=== PATIENT | male | born 1945 | race Caucasian/White ===

== ENCOUNTER 2016-06-08 21:05 | Emergency (ER) | payer MEDICARE, MEDICAID ==
[2016-06-09] MEDS ORDERED: NORMAL SALINE 1000 ML 1,000 ML IV PRN (02:44)
--- NOTE | 2016-06-09 02:45 | ER Document Report ---
ED General - General Chief Complaint: Other Stated Complaint: NECK/SHOULDER PAIN Time seen by provider: 02:45 Mode of Arrival: Ambulatory Information source: Patient TRAVEL OUTSIDE OF THE [place] IN LAST 30 DAYS: No - HPI Patient complains to provider of: neck and shoulder pain Onset: Other - 2-3 days Onset/Duration: Gradual Quality of pain: Achy Severity: Mild Pain Level: 2 Associated symptoms: None Exacerbated by: Movement Relieved by: Denies Similar symptoms previously: Yes Recently seen / treated by doctor: Yes Notes: Patient is a 70-year-old male presenting to the emergency room complaining of neck and shoulder aches that have been going on for the past 2-3 days, stating that he feels dehydrated, he recently started a new medication provided by his math and physics instructor for constipation, which is Movantik, , he reports his last bowel movement was 3 or 4 days ago which is typical for him, he denies any chills, no fevers, no cough, cold or congestion, no vomiting, patient denies injury or trauma - Related Data Allergies/Adverse Reactions: No Known Allergies Allergy (Verified 06/08/16 22:48) Past Medical History - General Information source: Patient - Social History Smoking Status: Never Smoker Chew tobacco use (# tins/day): No Frequency of alcohol use: None Drug Abuse: None Family History: None - Past Medical History Cardiac Medical History: Reports: Hx Atrial Fibrillation, Hx Congestive Heart Failure, Hx Coronary Artery Disease, Hx Hypercholesterolemia, Hx Hypertension Denies: Hx Heart Attack Pulmonary Medical History: Reports: Hx Asthma, Hx Bronchitis, Hx COPD, Hx Pneumonia Denies: Hx Tuberculosis Neurological Medical History: Reports: Hx Cerebrovascular Accident - RIGHT SIDED WEAKNESS. Denies: Hx Seizures Endocrine Medical History: Reports: Hx Diabetes Mellitus Type 1, Hx Diabetes Mellitus Type 2 Renal/ Medical History: Denies: Hx Benign Prostatic Hyperplasia, Hx End Stage Renal Disease, Hx Kidney Stones, Hx Peritoneal Dialysis GI Medical History: Reports: Hx Gastroesophageal Reflux Disease. Denies: Hx Cirrhosis, Hx Ulcer Musculoskeltal Medical History: Denies Hx Arthritis, Denies Hx Multiple Sclerosis Psychiatric Medical History: Reports: Hx Depression Denies: Hx Bipolar Disorder, Hx Schizophrenia Past Surgical History: Reports: Hx Cardiac Catheterization - stent x1, Hx Cardiac Surgery - pacemaker x's2, Hx Cholecystectomy - 2000, Hx Orthopedic Surgery - jaw fx, Hx Pacemaker - x2 - Immunizations Hx Diphtheria, Pertussis, Tetanus Vaccination: Yes - < 5 years Hx Pneumococcal Vaccination: 12/24/11 Review of Systems - Review of Systems Constitutional: No symptoms reported EENT: No symptoms reported Cardiovascular: No symptoms reported Respiratory: No symptoms reported Gastrointestinal: No symptoms reported Genitourinary: No symptoms reported Male Genitourinary: No symptoms reported Musculoskeletal: See HPI Skin: No symptoms reported Hematologic/Lymphatic: No symptoms reported Neurological/Psychological: No symptoms reported -: Yes All other systems reviewed and negative Physical Exam - Vital signs Vitals: Temp Pulse Resp BP Pulse Ox 98.7 F 99 17 136/82 H 98 06/08/16 22:10 06/08/16 22:10 06/08/16 22:10 06/08/16 22:10 06/08/16 22:10 Interpretation: Normal - General General appearance: Appears well, Alert - HEENT Head: Normocephalic, Atraumatic Eyes: Other - Patient is wearing an eye patch on the right side Mucous membranes: Dry Pharynx: Normal Neck: Other - Bilateral paraspinal muscle tenderness radiating down into trapezius muscles, distal sensation and motor is intact with 2+ radial pulses - Respiratory Respiratory status: No respiratory distress Chest status: Nontender Breath sounds: Normal Chest palpation: Normal - Cardiovascular Rhythm: Regular Heart sounds: Normal auscultation Murmur: No - Abdominal Inspection: Normal Distension: No distension Bowel sounds: Hyperactive Tenderness: Nontender Organomegaly: No organomegaly - Back Back: Normal, Nontender - Extremities General upper extremity: Normal inspection, Nontender, Normal color, Normal ROM , Normal temperature General lower extremity: Normal inspection, Nontender, Normal color, Normal ROM , Normal temperature, Normal weight bearing. No: Liz's sign - Neurological Neuro grossly intact: Yes Cognition: Normal Orientation: AAOx4 Taya Coma Scale Eye Opening: Spontaneous Ballantine Coma Scale Verbal: Oriented Taya Coma Scale Motor: Obeys Commands Taya Coma Scale Total: 15 Speech: Normal Motor strength normal: LUE, RUE, LLE, RLE Sensory: Normal - Psychological Associated symptoms: Normal affect, Normal mood - Skin Skin Temperature: Warm Skin Moisture: Dry Skin Color: Normal Course - Re-evaluation Re-evalutation: 06/09/16 04:41 Patient resting comfortably, reports feeling much better after IV fluids, labs were discussed with him at bedside which are actually showing slightly improved kidney function since his last visit, patient was advised to follow-up with his primary care provider and his math and physics instructor for reevaluation or return if symptoms patient acknowledges understanding and agreement with this plan - Vital Signs Vital signs: Temp Pulse Resp BP Pulse Ox 98.7 F 99 17 136/82 H 98 06/08/16 22:10 06/08/16 22:10 06/08/16 22:10 06/08/16 22:10 06/08/16 22:10 - Laboratory Result Diagrams: 06/09/16 03:47 06/09/16 03:47 Laboratory results interpreted by me: 06/09/16 06/09/16 03:47 03:47 RDW 14.3 H Plt Count 145 L BUN 36 H Creatinine 2.38 H Est GFR ( Amer) 33 L Est GFR (Non-Af Amer) 27 L Discharge - Discharge Clinical Impression: Chronic pain syndrome Constipation Qualifiers: Constipation type: unspecified constipation type Qualified Code(s): K59.00 - Constipation, unspecified Condition: Stable Disposition: HOME, SELF-CARE Instructions: Observation for Appendicitis ([facility]), Chronic Pain Control ([facility]), Constipation ([facility]) Additional Instructions: Follow up with your primary care provider and math and physics instructor in one to 2 days. Return to the emergency room immediately if symptoms worsen or any additional concerns. Referrals: KAYLA INGRAM MD [Primary Care Provider] - Follow up as needed
[2016-06-09 04:04] LABS: ABSOLUTE BASOPHILS # (AUTO) 0.1 10^3/uL (0.0-0.2); ABSOLUTE EOSINOPHILS # (AUTO) 0.2 10^3/uL (0.0-0.6); ABSOLUTE LYMPHOCYTES (AUTO) 1.5 10^3/uL (0.5-4.7); ABSOLUTE MONOCYTES (AUTO) 0.9 10^3/uL (0.1-1.4); ABSOLUTE NEUT (AUTO) 5.4 10^3/uL (1.7-8.2); BASOPHILS % (AUTO) 0.8 % (0-2); EOSINOPHILS % (AUTO) 2.8 % (0-6); HEMOGLOBIN 13.5 g/dL (13.5-17.0); HGB HCT DIFFERENCE 0.5; LYMPHOCYTES % (AUTO) 18.6 % (13-45); MEAN CORPUSCULAR HEMOGLOBIN 28.4 pg (27.0-33.4); MEAN CORPUSCULAR HGB CONC 33.8 g/dL (32.0-36.0); MEAN CORPUSCULAR VOLUME 84 fl (80-97); MONOCYTES % (AUTO) 10.9 % (3-13); RED BLOOD COUNT 4.75 10^6/uL (4.35-5.55); RED CELL DISTRIBUTION WIDTH 14.3 % (11.5-14.0); SEGMENTED NEUTROPHILS % (AUTO) 66.9 % (42-78); WHITE BLOOD COUNT 8.1 10^3/uL (4.0-10.5)
[2016-06-09 04:17] LABS: ALANINE AMINOTRANSFERASE 29 U/L (21-72); ALBUMIN 3.8 g/dL (3.5-5.0); ALKALINE PHOSPHATASE 88 U/L (38-126); ANION GAP 9 (5-19); ASPARTATE AMINO TRANSFERASE 41 U/L (17-59); BILIRUBIN,TOTAL 0.5 mg/dL (0.2-1.3); BLOOD UREA NITROGEN 36 mg/dL (7-20); CALCIUM 9.2 mg/dL (8.4-10.2); CARBON DIOXIDE 27 mmol/L (22-30); CHLORIDE 105 mmol/L (98-107); CREATININE RESULT 2.38 mg/dL (0.52-1.25); GLUCOSE 110 mg/dL (75-110); POTASSIUM 4.4 mmol/L (3.6-5.0); SODIUM 140.8 mmol/L (137-145); TOTAL PROTEIN 6.9 g/dL (6.3-8.2)
[2016-06-09 05:58] VITALS: BP 151/83
== END 2016-06-09 05:58 | disposition home or self-care (01) ==
LOC: ER 21:05
DX: G89.4 Chronic pain syndrome (principal); M54.2 Cervicalgia; M25.519 Pain in unspecified shoulder; K59.00 Constipation, unspecified; I48.91 Unspecified atrial fibrillation; I25.10 Atherosclerotic heart disease of native coronary artery without angina pectoris; I10 Essential (primary) hypertension; J44.9 Chronic obstructive pulmonary disease, unspecified; E11.9 Type 2 diabetes mellitus without complications; Z98.61 Coronary angioplasty status; Z95.0 Presence of cardiac pacemaker; Z86.73 Personal history of transient ischemic attack (TIA), and cerebral infarction without residual deficits
CPT/HCPCS: 99283; 96360; 36415; 82553; 85025; 80053; J7030

== ENCOUNTER 2016-11-04 08:32 | Emergency (ER) | payer MEDICARE, MEDICAID ==
[2016-11-04] MEDS ORDERED: MORPHINE SULFATE 10 MG/ML INJ IM ONE (08:53)
--- NOTE | 2016-11-04 08:56 | ER Document Report ---
ED General - General Chief Complaint: Testicular Pain Stated Complaint: GROIN PAIN Time Seen by Provider: 11/04/16 08:44 Mode of Arrival: Ambulatory Information source: Patient Notes: 71-year-old male presents with sudden right testicular pain that started this morning when he awoke. Patient denies any fevers or chills admits nausea with the pain. Patient notes a history of stones in his kidney states the pain is in the testicle feels it is swollen TRAVEL OUTSIDE OF THE [place] IN LAST 30 DAYS: No - HPI Onset: Just prior to arrival Onset/Duration: Sudden Quality of pain: Sharp Severity: Moderate Pain Level: 3 Associated symptoms: Other Exacerbated by: Denies Relieved by: Denies Similar symptoms previously: No Recently seen / treated by doctor: No - Related Data Allergies/Adverse Reactions: No Known Allergies Allergy (Verified 11/04/16 08:59) Past Medical History - Social History Smoking Status: Current Every Day Smoker Cigarette use (# per day): Yes Chew tobacco use (# tins/day): No Smoking Education Provided: No Family History: None - Past Medical History Cardiac Medical History: Reports: Hx Atrial Fibrillation, Hx Congestive Heart Failure, Hx Coronary Artery Disease, Hx Hypercholesterolemia, Hx Hypertension Denies: Hx Heart Attack Pulmonary Medical History: Reports: Hx Asthma, Hx Bronchitis, Hx COPD, Hx Pneumonia Denies: Hx Tuberculosis Neurological Medical History: Reports: Hx Cerebrovascular Accident - RIGHT SIDED WEAKNESS. Denies: Hx Seizures Endocrine Medical History: Reports: Hx Diabetes Mellitus Type 1, Hx Diabetes Mellitus Type 2 Renal/ Medical History: Denies: Hx Benign Prostatic Hyperplasia, Hx End Stage Renal Disease, Hx Kidney Stones, Hx Peritoneal Dialysis GI Medical History: Reports: Hx Gastroesophageal Reflux Disease. Denies: Hx Cirrhosis, Hx Ulcer Musculoskeltal Medical History: Denies Hx Arthritis, Denies Hx Multiple Sclerosis Psychiatric Medical History: Reports: Hx Depression Denies: Hx Bipolar Disorder, Hx Schizophrenia Past Surgical History: Reports: Hx Cardiac Catheterization - stent x1, Hx Cardiac Surgery - pacemaker x's2, Hx Cholecystectomy - 1999, Hx Orthopedic Surgery - jaw fx, Hx Pacemaker - x2 - Immunizations Hx Diphtheria, Pertussis, Tetanus Vaccination: Yes - < 5 years Hx Pneumococcal Vaccination: 12/24/11 Review of Systems - Review of Systems Notes: REVIEW OF SYSTEMS: CONSTITUTIONAL : Denies fever, chills, or sweats. Denies recent illness. EENT: Denies eye, ear, throat, or mouth pain or symptoms. Denies nasal or sinus congestion or discharge. Denies throat, tongue, or mouth swelling or difficulty swallowing. CARDIOVASCULAR: Denies chest pain. Denies palpitations or racing or irregular heart beat. Denies ankle edema. RESPIRATORY: Denies cough, cold, or chest congestion. Denies shortness of breath, difficulty breathing, or wheezing. GASTROINTESTINAL: Admits to right testicular pain nausea GENITOURINARY: Denies difficulty urinating, painful urination, burning, frequency, blood in urine, or discharge. MUSCULOSKELETAL: Denies back or neck pain or stiffness. Denies joint pain or swelling. SKIN: Denies rash, lesions or sores. HEMATOLOGIC : Denies easy bruising or bleeding. LYMPHATIC: Denies swollen, enlarged glands. NEUROLOGICAL: Denies confusion or altered mental status. Denies passing out or loss of consciousness. Denies dizziness or lightheadedness. Denies headache. Denies weakness or paralysis or loss of use of either side. Denies problems with gait or speech. Denies sensory loss, numbness, or tingling. Denies seizures. PSYCHIATRIC: Denies anxiety or stress. Denies depression, suicidal ideation, or homicidal ideation. ALL OTHER SYSTEMS REVIEWED AND NEGATIVE. Dictation was performed using [employer] voice recognition software PHYSICAL EXAMINATION: GENERAL: Well-appearing, well-nourished and in no acute distress. HEAD: Atraumatic, normocephalic. EYES: Pupils equal round and reactive to light, extraocular movements intact, sclera anicteric, conjunctiva are normal. ENT: Nares patent, oropharynx clear without exudates. Moist mucous membranes. NECK: Normal range of motion, supple without lymphadenopathy LUNGS: Breath sounds clear to auscultation bilaterally and equal. No wheezes rales or rhonchi. HEART: Regular rate and rhythm without murmurs ABDOMEN: Soft, nontender, nondistended abdomen. No guarding, no rebound. No masses appreciated. Right scrotum is edematous and tender to palpation cremaster reflexes intact Musculoskeletal: Normal range of motion, no pitting or edema. No cyanosis. NEUROLOGICAL: Cranial nerves grossly intact. Normal speech, normal gait. Normal sensory, motor exams PSYCH: Normal mood, normal affect. SKIN: Warm, Dry, normal turgor, no rashes or lesions noted. Physical Exam - Vital signs Vitals: Temp Pulse Resp BP Pulse Ox 98.5 F 95 18 151/86 H 97 11/04/16 08:38 11/04/16 08:38 11/04/16 08:38 11/04/16 08:38 11/04/16 08:38 Course - Re-evaluation Re-evalutation: 11/04/16 08:55 Patient will be emergently sent for ultrasound, he denies being sexually active patient is tender in the right testicle 11/04/16 10:14 U/s os consistant with a right sided hydrocele, no sign of infection in the urine, pt denies sexual activity. I will treat jessica cunningham and givefollow up with urology. After performing a Medical Screening Examination, I estimate there is LOW risk for ACUTE APPENDICITIS, BOWEL OBSTRUCTION, ACUTE CHOLECYSTITIS, PERFORATED DIVERTICULITIS, INCARCERATED HERNIA, PANCREATITIS, Testicular Torsion or PERFORATED ULCER, thus I consider the discharge disposition reasonable. Also, there is no evidence or peritonitis, sepsis, or toxicity. I have reevaluated this patient multiple times and no significant life threatening changes are noted. The patient and I have discussed the diagnosis and risks, and we agree with discharging home with close follow-up with the understanding that symptoms and presentations can change. We also discussed returning to the Emergency Department immediately if new or worsening symptoms occur. We have discussed the symptoms which are most concerning (e.g., bloody stool, fever, changing or worsening pain, intractable vomiting - standard verbal up date) that necessitate immediate return. - Vital Signs Vital signs: Temp Pulse Resp BP Pulse Ox 98.5 F 95 18 151/86 H 97 11/04/16 08:38 11/04/16 08:38 11/04/16 08:38 11/04/16 08:38 11/04/16 08:38 - Laboratory Laboratory results interpreted by me: 11/04/16 11/04/16 08:47 09:41 POC Glucose 283 H Urine Protein 100 H Urine Glucose (UA) >=500 H - Diagnostic Test Radiology reviewed: Image reviewed, Reports reviewed - right sided hydrocele Discharge - Discharge Clinical Impression: Right hydrocele, Scrotal pain Condition: Stable Disposition: HOME, SELF-CARE Instructions: Hydrocele ([facility]) Prescriptions: RX: Ciprofloxacin HCl [Cipro 500 mg Tablet] 500 mg PO BID #20 tablet Oxycodone HCl/Acetaminophen [Percocet 5-325 mg Tablet] 1 - 2 tab PO Q4H PRN #15 tablet PRN Reason: Referrals: KAYLA INGRAM MD [Primary Care Provider] - Follow up tomorrow JULIANA SU MD [ACTIVE STAFF] - Follow up tomorrow Print Language: Macedonian
[2016-11-04 09:28] LABS: APPEARANCE,URINE CLEAR; BILIRUBIN,URINE NEGATIVE (NEGATIVE); GLUCOSE, URINE >=500 mg/dL (NEGATIVE); KETONES,URINE NEGATIVE (NEGATIVE); LEUKOCYTE ESTERASE,URINE NEGATIVE (NEGATIVE); NITRITE,URINE NEGATIVE (NEGATIVE); PROTEIN,URINE 100 mg/dL (NEGATIVE); URINE SPECIFIC GRAVITY 1.008; UROBILINOGEN,URINE NEGATIVE mg/dL (<2.0)
--- NOTE | 2016-11-04 09:55 | RADIOLOGY REPORT (SQ) ---
EXAM DESCRIPTION: U/S SCROTUM W/DOPPLER COMPLETED DATE/TIME: 11/04/2016 9:43 am REASON FOR STUDY: right testicular pain COMPARISON: None. TECHNIQUE: Static and realtime torres scale imaging of the scrotum and testes. Selected color Doppler and spectral images recorded to document blood flow. LIMITATIONS: None. FINDINGS: RIGHT: TESTICLE: Normal size. Normal echotexture. Normal blood flow. No mass. EPIDIDYMIS: Epididymal head cyst is identified measuring 1.4 x 1.3 x 0.6 cm in diameters HYDROCELE OR VARICOCELE: Large hydrocele is identified. HERNIA OR EXTRA-TESTICULAR MASS: No. OTHER: No other significant finding. LEFT: TESTICLE: Normal size. Normal echotexture. Normal blood flow. No mass. EPIDIDYMIS: Epididymal head cyst is identified measuring 1.0 x 0.8 x 0.7 cm HYDROCELE OR VARICOCELE: No. HERNIA OR EXTRA-TESTICULAR MASS: No. OTHER: No other significant finding. IMPRESSION: Large hydrocele on the right. NO EVIDENCE OF TESTICULAR MASS OR TORSION. Other findings as noted above TECHNICAL DOCUMENTATION: JOB ID: [id number]- All Rights Reserved
[2016-11-04 10:44] VITALS: BP 148/74
== END 2016-11-04 10:42 | disposition home or self-care (01) ==
LOC: ER 08:32
DX: N43.3 Hydrocele, unspecified (principal); N50.811 Right testicular pain; R11.0 Nausea; I25.10 Atherosclerotic heart disease of native coronary artery without angina pectoris; I10 Essential (primary) hypertension; I48.91 Unspecified atrial fibrillation; J44.9 Chronic obstructive pulmonary disease, unspecified; E11.9 Type 2 diabetes mellitus without complications; F17.210 Nicotine dependence, cigarettes, uncomplicated; Z87.442 Personal history of urinary calculi; Z95.0 Presence of cardiac pacemaker
CPT/HCPCS: 99284; 96372; 82962; 81001; 76870; 93976; J2270

== ENCOUNTER 2016-11-06 08:09 | Emergency (ER) | payer MEDICARE, MEDICAID ==
[2016-11-06] MEDS ORDERED: ONDANSETRON HCL INJ/PF 4 MG/2 ML SDV IV ONE (08:58)
[2016-11-06] MEDS ORDERED: NORMAL SALINE 1000 ML 500 ML IV ONE (08:58)
[2016-11-06] MEDS ORDERED: KETOROLAC TROMETHAMINE INJ/PF 30 MG/1 ML SDV IV ONE (08:58)
[2016-11-06 09:36] LABS: ALANINE AMINOTRANSFERASE 26 U/L (21-72); ALBUMIN 4.1 g/dL (3.5-5.0); ALKALINE PHOSPHATASE 107 U/L (38-126); ANION GAP 12 (5-19); ASPARTATE AMINO TRANSFERASE 28 U/L (17-59); BILIRUBIN,DIRECT 0.5 mg/dL (0.0-0.4); BLOOD UREA NITROGEN 40 mg/dL (7-20); CALCIUM 9.3 mg/dL (8.4-10.2); CARBON DIOXIDE 26 mmol/L (22-30); CHLORIDE 101 mmol/L (98-107); CREATININE RESULT 3.51 mg/dL (0.52-1.25); GLUCOSE 151 mg/dL (75-110); LIPASE 132.9 U/L (23-300); POTASSIUM 4.6 mmol/L (3.6-5.0); SODIUM 138.6 mmol/L (137-145); TOTAL PROTEIN 7.5 g/dL (6.3-8.2)
[2016-11-06 09:39] LABS: ABSOLUTE EOSINOPHILS # (AUTO) 0.1 10^3/uL (0.0-0.6); ABSOLUTE LYMPHOCYTES (AUTO) 1.6 10^3/uL (0.5-4.7); ABSOLUTE MONOCYTES (AUTO) 1.3 10^3/uL (0.1-1.4); ABSOLUTE NEUT (AUTO) 7.7 10^3/uL (1.7-8.2); BASOPHILS % (AUTO) 0.4 % (0-2); EOSINOPHILS % (AUTO) 0.8 % (0-6); HEMATOCRIT 41.2 % (37.9-51.0); HEMOGLOBIN 13.9 g/dL (13.5-17.0); HGB HCT DIFFERENCE 0.5; LYMPHOCYTES % (AUTO) 15.1 % (13-45); MEAN CORPUSCULAR HEMOGLOBIN 28.9 pg (27.0-33.4); MEAN CORPUSCULAR HGB CONC 33.7 g/dL (32.0-36.0); MEAN CORPUSCULAR VOLUME 86 fl (80-97); MONOCYTES % (AUTO) 11.8 % (3-13); RED BLOOD COUNT 4.81 10^6/uL (4.35-5.55); RED CELL DISTRIBUTION WIDTH 14.9 % (11.5-14.0); SEGMENTED NEUTROPHILS % (AUTO) 71.9 % (42-78); WHITE BLOOD COUNT 10.7 10^3/uL (4.0-10.5)
--- NOTE | 2016-11-06 10:02 | RADIOLOGY REPORT (SQ) ---
EXAM DESCRIPTION: CT LTD RENAL STONE PROTOCOL ON COMPLETED DATE/TIME: 11/06/2016 9:44 am REASON FOR STUDY: right flank pain, right testicular pain with COMPARISON: CT abdomen pelvis 03/18/2014 TECHNIQUE: CT scan of the abdomen and pelvis performed without intravenous or oral contrast. Images reviewed with lung, soft tissue, and bone windows. Reconstructed coronal and sagittal MPR images revi ewed. All images stored on PACS. All CT scanners at this facility use dose modulation, iterative reconstruction, and/or weight based d osing when appropriate to reduce radiation dose to as low as reasonably achievable (ALARA). [facility]: Dose Right [facility]: CareDose [facility]: Dose Right [facility]: Teradose 4D [facility]: [employer] RADIATION DOSE: Up-to-date CT equipment and radiation dose reduction techniques were employed. CTDIv ol: 15.8 mGy. DLP: 1115 mGy-cm.mGy. LIMITATIONS: None. FINDINGS: A 2 mm stone is present in the right distal ureter, within 2 cm of the ureterovesical junc tion, best shown on axial image 94 and coronal image 55. There is very mild right hydronephrosis hyd roureter and perinephric stranding. Elsewhere in the right kidney, a 1 cm upper pole cortical cyst is present. No other right-sided urin tiffanie calculi. LOWER CHEST: Lung bases are clear. Coronary artery calcifications. Pacemaker. NON-CONTRASTED LIVER, SPLEEN, ADRENALS: Evaluation limited by lack of IV contrast. No identified sign ificant masses. PANCREAS: No masses. No peripancreatic inflammatory changes. GALLBLADDER: Surgically absent RIGHT KIDNEY AND URETER: As above LEFT KIDNEY AND URETER: No suspicious masses. Assessment limited by lack of IV contrast. No signifi cant calcifications. No hydronephrosis or hydroureter. AORTA AND RETROPERITONEUM: No abdominal aortic aneurysm. Very heavily calcified proximal celiac jamee ry and proximal right renal artery BOWEL AND PERITONEAL CAVITY: No obvious masses or inflammatory changes. No free fluid. APPENDIX: Normal. PELVIS, BLADDER, AND ABDOMINAL WALL:Minimal chronic scarring or fat necrosis along the inferior aspec t of the sigmoid colon, coronal image 41. This is similar compared to 2014. No free fluid. Bladder n ormal. BONES: No significant findings. OTHER: Moderate to large right scrotal hydrocele IMPRESSION: 2 mm right distal ureteral calculus with mild right hydronephrosis and hydroureter TECHNICAL DOCUMENTATION: JOB ID: [id number] Quality ID # [id number]: Final reports with documentation of one or more dose reduction techniques (e.g., Au tomated exposure control, adjustment of the mA and/or kV according to patient size, use of iterative reconstruction technique) 2010 [employer]- All Rights Reserved
--- NOTE | 2016-11-06 10:13 | ER Document Report ---
ED GI/ - General Chief Complaint: Flank Pain Stated Complaint: RIGHT SIDE PAIN Time Seen by Provider: 11/06/16 08:38 Mode of Arrival: Ambulatory Information source: Patient Notes: 71-year-old male who presents to the ER today for right flank pain radiating down to the right testicle since 3 days ago. Patient was evaluated here 2 days ago and had an ultrasound of the right testicle which revealed a hydrocele, but did not have any workup for flank pain. Patient states the flank pain did get worse since that time. He admits to nausea with no vomiting, he states that he does know he has multiple kidney stones in the right kidney. He denies fevers, chills, dysuria, hematuria that he is noticed. TRAVEL OUTSIDE OF THE [place] IN LAST 30 DAYS: No - Related Data Allergies/Adverse Reactions: No Known Allergies Allergy (Verified 11/06/16 08:15) Past Medical History - General Information source: Patient - Social History Smoking Status: Never Smoker Chew tobacco use (# tins/day): No Frequency of alcohol use: None Drug Abuse: None Family History: None Patient has suicidal ideation: No Patient has homicidal ideation: No - Past Medical History Cardiac Medical History: Reports: Hx Atrial Fibrillation, Hx Congestive Heart Failure, Hx Coronary Artery Disease, Hx Hypercholesterolemia, Hx Hypertension Denies: Hx Heart Attack Pulmonary Medical History: Reports: Hx Asthma, Hx Bronchitis, Hx COPD, Hx Pneumonia Denies: Hx Tuberculosis Neurological Medical History: Reports: Hx Cerebrovascular Accident - RIGHT SIDED WEAKNESS. Denies: Hx Seizures Endocrine Medical History: Reports: Hx Diabetes Mellitus Type 1, Hx Diabetes Mellitus Type 2 Renal/ Medical History: Denies: Hx Benign Prostatic Hyperplasia, Hx End Stage Renal Disease, Hx Kidney Stones, Hx Peritoneal Dialysis GI Medical History: Reports: Hx Gastroesophageal Reflux Disease. Denies: Hx Cirrhosis, Hx Ulcer Musculoskeltal Medical History: Denies Hx Arthritis, Denies Hx Multiple Sclerosis Psychiatric Medical History: Reports: Hx Depression Denies: Hx Bipolar Disorder, Hx Schizophrenia Past Surgical History: Reports: Hx Cardiac Catheterization - stent x1, Hx Cardiac Surgery - pacemaker x's2, Hx Cholecystectomy - 1999, Hx Orthopedic Surgery - jaw fx, Hx Pacemaker - x2 - Immunizations Hx Diphtheria, Pertussis, Tetanus Vaccination: Yes - < 5 years Hx Pneumococcal Vaccination: 12/24/11 Review of Systems - Review of Systems Constitutional: No symptoms reported EENT: No symptoms reported Cardiovascular: No symptoms reported Respiratory: No symptoms reported Gastrointestinal: No symptoms reported Genitourinary: See HPI Male Genitourinary: No symptoms reported Musculoskeletal: No symptoms reported Skin: No symptoms reported Hematologic/Lymphatic: No symptoms reported Neurological/Psychological: No symptoms reported Physical Exam - Vital signs Vitals: Temp Pulse Resp BP Pulse Ox 98.9 F 102 H 20 110/71 96 11/06/16 08:15 11/06/16 08:15 11/06/16 08:15 11/06/16 08:15 11/06/16 08:15 - Notes Notes: PHYSICAL EXAMINATION: GENERAL: Appears uncomfortable, but in no acute distress. HEAD: Atraumatic, normocephalic. NECK: Normal range of motion, supple without lymphadenopathy LUNGS: CTAB and equal. No wheezes rales or rhonchi. HEART: Regular rate and rhythm without murmurs ABDOMEN: Soft, no tenderness. No guarding, no rebound BACK: no vertebral tenderness, normal ROM GI/: Right CVA tenderness EXTREMITIES: Normal range of motion, no pitting edema. No cyanosis. NEUROLOGICAL: Cranial nerves grossly intact. Normal sensory/motor exams. PSYCH: Normal mood, normal affect. SKIN: Warm, Dry, normal turgor, no rashes or lesions noted Course - Re-evaluation Re-evalutation: 11/06/16 12:49 CAT scan reveals 2 mm stone in the right distal ureter, urinalysis reveals blood and no signs of infection. Patient is comfortable with Toradol, however has chronic kidney disease, at baseline. - Vital Signs Vital signs: Temp Pulse Resp BP Pulse Ox 98.9 F 83 17 131/78 H 96 11/06/16 08:15 11/06/16 13:15 11/06/16 13:15 11/06/16 13:15 11/06/16 08:15 - Laboratory Result Diagrams: 11/06/16 08:40 11/06/16 08:40 Laboratory results interpreted by me: 11/06/16 11/06/16 11/06/16 08:40 08:40 12:00 WBC 10.7 H RDW 14.9 H BUN 40 H Creatinine 3.51 H Est GFR ( Amer) 21 L Est GFR (Non-Af Amer) 17 L Glucose 151 H Direct Bilirubin 0.5 H Urine Protein 100 H Urine Glucose (UA) 150 H Urine Blood SMALL H Discharge - Discharge Clinical Impression: Kidney stone on right side Condition: Stable Disposition: HOME, SELF-CARE Additional Instructions: Return immediately for any new or worsening symptoms. Follow up with primary care provider, call tomorrow to make followup appointment. Follow up with urologist if symptoms do not resolve in 7 days. [facility] [place] [facility] [address] [place], [place] [phone] [place] [facility] [address] [facility]. [place], [place] [phone] Prescriptions: Ondansetron [Zofran Odt 4 mg Tablet] 1 - 2 tab PO Q4H PRN #15 tab.rapdis PRN Reason: For Nausea/Vomiting Oxycodone HCl [Oxycodone HCl 10 MG Tablet] 1 - 2 tab PO Q6H PRN #15 tablet PRN Reason: PAIN Tamsulosin HCl [Flomax] 0.4 mg PO DAILY #7 cap.er.24h Referrals: KAYLA INGRAM MD [Primary Care Provider] - Follow up as needed
[2016-11-06 12:37] LABS: APPEARANCE,URINE CLEAR; BILIRUBIN,URINE NEGATIVE (NEGATIVE); GLUCOSE, URINE 150 mg/dL (NEGATIVE); KETONES,URINE NEGATIVE (NEGATIVE); LEUKOCYTE ESTERASE,URINE NEGATIVE (NEGATIVE); NITRITE,URINE NEGATIVE (NEGATIVE); PROTEIN,URINE 100 mg/dL (NEGATIVE); URINE SPECIFIC GRAVITY 1.019; UROBILINOGEN,URINE NEGATIVE mg/dL (<2.0)
[2016-11-06 12:43] LABS: HYALINE CASTS, URINE 20-30 /LPF; RBC,URINE RARE /HPF; WBC,URINE RARE /HPF
[2016-11-06 13:16] VITALS: BP 131/78
== END 2016-11-06 13:15 | disposition home or self-care (01) ==
LOC: ER 08:09
DX: N20.0 Calculus of kidney (principal); R10.9 Unspecified abdominal pain; R11.0 Nausea; N50.811 Right testicular pain; I48.91 Unspecified atrial fibrillation; I11.0 Hypertensive heart disease with heart failure; I50.9 Heart failure, unspecified; I69.951 Hemiplegia and hemiparesis following unspecified cerebrovascular disease affecting right dominant side; I25.10 Atherosclerotic heart disease of native coronary artery without angina pectoris; Z95.0 Presence of cardiac pacemaker; Z90.49 Acquired absence of other specified parts of digestive tract
CPT/HCPCS: 99284; 96374; 96375; 36415; 83690; 85025; 80053; 81001; 76380; J1885; J2405; J7030

== ENCOUNTER 2017-01-10 09:04 | Day surgery (SDC) | payer MEDICARE, MEDICAID ==
[~2017-01-10 09:04] MED LIST: KETOROLAC TROMETHAMINE 0.45% 4 DROP/0.4 ML DROPERETTE OS PRN
[2017-01-10] MEDS ORDERED: EPINEPHRINE INJ/PF 1 MG/1 ML AMPULE ONE (09:13)
[2017-01-10] MEDS ORDERED: CHONDR SU A NA/HYALUR INTRAOC KIT (SURGICARE) ONE (09:13)
[2017-01-10] MEDS ORDERED: LIDOCAINE 1% INJ-PF (10 MG/ML) 30 ML SDV ONE (09:13)
[2017-01-10] MEDS: BESIFLOXACIN HCL 0.6% OPH SUSP 5 ML BOTTLE OS PRN ×3 (09:26→10:33)
[2017-01-10] MEDS: CYCLOPENTOLATE 0.2%/PHENYLEPHRINE 1% OPH SOLN 2 ML OS PRN ×3 (09:26→09:46)
[2017-01-10] MEDS: TROPICAMIDE 1% OPH SOLN 3 ML OS PRN ×3 (09:26→09:46)
[2017-01-10] MEDS: TETRACAINE HCL 0.5% OPH SOLN 2 ML OS PRN ×3 (09:27→10:07)
[2017-01-10] MEDS ORDERED: MIDAZOLAM 2 MG/2 ML INJ ONE (09:59)
--- NOTE | 2017-01-13 19:27 | [facility] OPERATIVE REPORT E ---
[facility] Operative Report NAME: JUJU DEVI AGE: 71Y DATE OF SURGERY: 01/11/2017 ROOM: PREOPERATIVE DIAGNOSIS: CATARACT, LEFT EYE. POSTOPERATIVE DIAGNOSIS: CATARACT, LEFT EYE. OPERATION: Cataract extraction with intraocular lens implant of the left eye. SURGEON: REKHA CAMARENA M.D. ANESTHESIA: Topical. PROCEDURE: After obtaining appropriate consent, the patient's left eye was prepped and draped in sterile fashion as well as the surgeon in a sterile manner and cataract surgery was started. First a paracentesis blade was used to make a small side-port incision. Viscoelastic was used to inflate the anterior chamber. Next a 2.4 mm incision was made with the paracentesis blade. A continuous capsulorrhexis incision was made using a cystotome and Utrata forceps. Following this hydrodissection was carried out to make the lens fully loose and mobile and it was rotated 90 degrees. Following this, a kesvjf-rqn-[id number] technique was used to phacoemulsify the lens with a CDE of 8.71. The remaining cortex was removed with irrigation/aspiration. Provisc was instilled into the capsular bag to inflate the bag. A SN60WF, 22.5 diopter lens was placed. The remaining viscoelastic material was removed with irrigation/aspiration. Following this, a 10-0 nylon suture was used to close the incision and it was found to be watertight. Vigamox was instilled in the eye and a protective shield was placed over the eye. The patient returned to the postoperative recovery in stable condition. DICTATING PHYSICIAN: REKHA CAMARENA M.D. [id number] PHY#: [id number] ID: [id number] JOB#: [id number] ACCT: [id number] cc:REKHA CAMARENA M.D. >
--- NOTE | 2017-01-13 19:27 | DISCHARGE SUMMARY E ---
Discharge Summary NAME: JUJU DEVI : 1945 AGE: 71Y ADMITTED: 01/10/2017 DISCHARGED: 01/10/2017 HISTORY: This is a 71-year-old patient who underwent cataract extraction left eye. DIAGNOSIS: Cataract, left eye. HOSPITAL COURSE AND DISCHARGE INSTRUCTIONS: He underwent surgery because he was having difficulty seeing the newspaper and television. He should be on a regular diet. No bending at his waist. No heavy lifting. He should use the Besivance, Ilevro, and Durezol at 3:00 p.m. at 8:00 p.m. and sleep with a rigid shield, and I will see him for his one day postoperative tomorrow. DICTATING PHYSICIAN: REKHA CAMARENA M.D. [id number] PHY#: [id number] ID: [id number] JOB#: [id number] ACCT: [id number] cc:REKHA CAMARENA M.D. >
== END 2017-01-10 11:17 | disposition home or self-care (01) ==
LOC: SC 09:04
PROVIDERS: ATTEND Internal Medicine
PROC: 08RK3JZ Replacement of Left Lens with Synthetic Substitute, Percutaneous Approach (ICD-10-PCS; principal; 2017-01-10 10:30)
DX: H25.812 Combined forms of age-related cataract, left eye (principal); H44.89 Other disorders of globe; H40.032 Anatomical narrow angle, left eye; H52.4 Presbyopia; E11.9 Type 2 diabetes mellitus without complications; M19.90 Unspecified osteoarthritis, unspecified site; I10 Essential (primary) hypertension; J45.909 Unspecified asthma, uncomplicated; I49.9 Cardiac arrhythmia, unspecified; Z86.73 Personal history of transient ischemic attack (TIA), and cerebral infarction without residual deficits; Z98.61 Coronary angioplasty status; Z79.4 Long term (current) use of insulin; Z79.01 Long term (current) use of anticoagulants; Z95.0 Presence of cardiac pacemaker; Z79.84 Long term (current) use of oral hypoglycemic drugs; Z79.51 Long term (current) use of inhaled steroids
CPT/HCPCS: 66984; 82962; V2632; J2250; J3490 ×2; A9270; J0171; 142

== ENCOUNTER 2017-02-09 18:30 | Emergency (ER) | payer MEDICARE, MEDICAID ==
--- NOTE | 2017-02-09 19:55 | ER Document Report ---
ED General - General Mode of Arrival: Ambulatory Information source: Patient TRAVEL OUTSIDE OF THE U.S[place] IN LAST 30 DAYS: No <DEANNA HORNE - Last Filed: 02/09/17 20:31> <JIMMY ANNE - Last Filed: 02/09/17 22:57> - General Chief Complaint: Groin Pain Stated Complaint: HIP PAIN Time Seen by Provider: 02/09/17 19:38 Notes: Patient is a 71 year old male presents to the emergency department complaining of left hip pain onset 3 to 4 days ago. Patient states that the pain Patient states that he can not stand due to the pain which he describes as sharp. Patient is currently on Coumadin. (DEANNA HORNE) - Related Data Allergies/Adverse Reactions: No Known Allergies Allergy (Verified 01/10/17 09:30) Past Medical History - General Information source: Patient - Social History Smoking Status: Never Smoker Chew tobacco use (# tins/day): No Frequency of alcohol use: None Drug Abuse: None Family History: None Patient has suicidal ideation: No Patient has homicidal ideation: No - Past Medical History Cardiac Medical History: Reports: Hx Atrial Fibrillation, Hx Congestive Heart Failure, Hx Coronary Artery Disease, Hx Hypercholesterolemia, Hx Hypertension Pulmonary Medical History: Reports: Hx Asthma, Hx Bronchitis, Hx COPD, Hx Pneumonia Neurological Medical History: Reports: Hx Cerebrovascular Accident - RIGHT SIDED WEAKNESS Endocrine Medical History: Reports: Hx Diabetes Mellitus Type 1, Hx Diabetes Mellitus Type 2 GI Medical History: Reports: Hx Gastroesophageal Reflux Disease Psychiatric Medical History: Reports: Hx Depression Past Surgical History: Reports: Hx Cardiac Catheterization - stent x1, Hx Cardiac Surgery - pacemaker x's2, Hx Cholecystectomy - 1999, Hx Orthopedic Surgery - jaw fx, Hx Pacemaker - x2 - Immunizations Hx Diphtheria, Pertussis, Tetanus Vaccination: Yes - < 5 years Hx Pneumococcal Vaccination: 12/24/11 <DEANNA HORNE - Last Filed: 02/09/17 20:31> Review of Systems - Review of Systems Constitutional: No symptoms reported EENT: No symptoms reported Cardiovascular: No symptoms reported Respiratory: No symptoms reported Gastrointestinal: No symptoms reported Genitourinary: No symptoms reported Male Genitourinary: No symptoms reported Musculoskeletal: See HPI - left hip and groin pain Skin: No symptoms reported Hematologic/Lymphatic: No symptoms reported Neurological/Psychological: No symptoms reported -: Yes All other systems reviewed and negative <DEANNA HORNE - Last Filed: 02/09/17 20:31> Physical Exam - General General appearance: Appears well, Alert In distress: None - HEENT Head: Normocephalic, Atraumatic Conjunctiva: Normal Pupils: PERRL Mucous membranes: Moist - Respiratory Respiratory status: No respiratory distress Breath sounds: Normal - Cardiovascular Rhythm: Regular Heart sounds: Normal auscultation - Abdominal Inspection: Normal Distension: No distension Bowel sounds: Normal Tenderness: Nontender Organomegaly: No organomegaly - Genitourinary Tenderness: No: Testicle tender - not enlagrged Cremasteric reflex: Normal - elicited Scrotum: Swelling, Other - non tender, - Back Back: Normal - Extremities General upper extremity: Normal inspection - no pain with ROM when testing of the left hip. No pain in adductor muscle insertion into groin., Normal ROM General lower extremity: Normal inspection, Normal ROM Hip: No: Nontender, Pain with ROM - Neurological Neuro grossly intact: Yes Cognition: Normal Orientation: AAOx4 [place] Coma Scale Eye Opening: Spontaneous [place] Coma Scale Verbal: Oriented [place] Coma Scale Motor: Obeys Commands [place] Coma Scale Total: 15 Speech: Normal - Psychological Associated symptoms: Normal affect, Normal mood - Skin Skin Temperature: Warm Skin Moisture: Dry <DEANNA HORNE - Last Filed: 02/09/17 20:31> - Vital signs Vitals: Resp 19 02/09/17 18:44 Course - Laboratory Result Diagrams: 02/09/17 18:40 02/09/17 18:40 <DEANNA HORNE - Last Filed: 02/09/17 20:31> - Laboratory Result Diagrams: 02/09/17 18:40 02/09/17 18:40 <JIMMY ANNE - Last Filed: 02/09/17 22:57> - Re-evaluation Re-evalutation: 02/09/17 22:51 The patient's evaluation is most consistent with shingles in the left L1 distribution. Review of the [place] controlled substance reporting system shows the patient received oxycodone 10 mg 60 tablets per month. He will receive a prescription for Percocet, as this problem can be quite painful and require more medication than what he is currently prescribed. He will be advised to follow with his doctor this week if he needs to be on larger doses of pain medication for any length of time. (JIMMY ANNE) - Vital Signs Vital signs: Temp Pulse Resp BP Pulse Ox 19 142/80 H 98 02/09/17 22:01 02/09/17 22:01 02/09/17 20:00 - Laboratory Laboratory results interpreted by me: 02/09/17 02/09/17 02/09/17 18:40 18:40 18:40 RDW 15.0 H Plt Count 149 L PT 26.5 H Chloride 93 L Carbon Dioxide 33 H BUN 32 H Creatinine 2.63 H Est GFR ( Amer) 29 L Est GFR (Non-Af Amer) 24 L Glucose 398 H Hemoglobin A1c % Alkaline Phosphatase 134 H Urine Protein Urine Glucose (UA) 02/09/17 02/09/17 18:40 20:31 RDW Plt Count PT Chloride Carbon Dioxide BUN Creatinine Est GFR ( Amer) Est GFR (Non-Af Amer) Glucose Hemoglobin A1c % 11.0 H Alkaline Phosphatase Urine Protein 100 H Urine Glucose (UA) >=500 H Discharge <DEANNA HORNE - Last Filed: 02/09/17 20:31> <JIMMY ANNE - Last Filed: 02/09/17 22:57> - Discharge Clinical Impression: Shingles rash Qualifiers: Herpes zoster complications: without complications Qualified Code(s): B02.9 - Zoster without complications Condition: Stable Disposition: HOME, SELF-CARE Additional Instructions: Shingles: You have shingles. Shingles is caused by the chicken pox virus, The virus has been surviving dormant in a nerve cell since you had chicken pox years ago. The virus has spread down a nerve root to reach the skin. Typically, an band-like area of pain and skin sensitivity develops, then small blisters erupt in the area. Shingles lasts two or three weeks, but sometimes leaves persistent pain. You are contagious -- you can give children chicken pox. But you can't give anyone shingles. Antiviral medicines (such as acyclovir or famciclovir) can help, but the rash usually worsens for about a week. Pain medication is often given if the area hurts. Antihistamines such as Benadryl may be necessary for itching if it does not respond to soda baths and calamine lotion. Sometimes cortisone medicine or nerve-block shots are necessary if pain is severe. If the area remains severely painful as the sores heal, or if you suspect an infection developing in the sores, see your doctor. Follow-up with your medical doctor if not improving. Follow-up with your medical doctor or your pain management doctor if you require additional narcotics for pain control above and beyond what you currently take on a regular basis. RETURN TO THE EMERGENCY ROOM IF ANY NEW OR WORSENING SYMPTOMS. Prescriptions: Acyclovir [Zovirax 800 mg Tablet] 800 mg PO 5XD #35 tab Oxycodone HCl/Acetaminophen [Percocet 5-325 mg Tablet] 1 tab PO Q4 #15 tablet Referrals: KAYLA INGRAM MD [Primary Care Provider] - Follow up as needed Scribe Attestation: 02/09/17 20:39 I personally performed the services described in the documentation, reviewed and edited the documentation which was dictated to the scribe in my presence, and it accurately records my words and actions. (JIMMY ANNE) Scribe Documentation - Scribe Written by Anupama:: Anupama Lewis, 02/09/2017 20:31 acting as scribe for :: Lupillo <DEANNA HORNE - Last Filed: 02/09/17 20:31>
[2017-02-09 20:05] LABS: ABSOLUTE EOSINOPHILS # (AUTO) 0.2 10^3/uL (0.0-0.6); ABSOLUTE LYMPHOCYTES (AUTO) 1.6 10^3/uL (0.5-4.7); ABSOLUTE MONOCYTES (AUTO) 0.8 10^3/uL (0.1-1.4); ABSOLUTE NEUT (AUTO) 5.1 10^3/uL (1.7-8.2); BASOPHILS % (AUTO) 0.6 % (0-2); EOSINOPHILS % (AUTO) 2.1 % (0-6); HEMATOCRIT 43.3 % (37.9-51.0); HEMOGLOBIN 14.7 g/dL (13.5-17.0); HGB HCT DIFFERENCE 0.8; LYMPHOCYTES % (AUTO) 20.3 % (13-45); MEAN CORPUSCULAR HEMOGLOBIN 29.6 pg (27.0-33.4); MEAN CORPUSCULAR HGB CONC 33.9 g/dL (32.0-36.0); MEAN CORPUSCULAR VOLUME 87 fl (80-97); RED BLOOD COUNT 4.97 10^6/uL (4.35-5.55); WHITE BLOOD COUNT 7.7 10^3/uL (4.0-10.5)
[2017-02-09 20:12] LABS: PROTHROMBIN TIME 26.5 SEC (11.4-15.4)
[2017-02-09 20:25] LABS: ALANINE AMINOTRANSFERASE 29 U/L (21-72); ALBUMIN 3.7 g/dL (3.5-5.0); ALKALINE PHOSPHATASE 134 U/L (38-126); ANION GAP 13 (5-19); ASPARTATE AMINO TRANSFERASE 19 U/L (17-59); BILIRUBIN,DIRECT 0.4 mg/dL (0.0-0.4); BILIRUBIN,TOTAL 0.6 mg/dL (0.2-1.3); BLOOD UREA NITROGEN 32 mg/dL (7-20); CALCIUM 9.1 mg/dL (8.4-10.2); CARBON DIOXIDE 33 mmol/L (22-30); CHLORIDE 93 mmol/L (98-107); CREATININE RESULT 2.63 mg/dL (0.52-1.25); GLUCOSE 398 mg/dL (75-110); POTASSIUM 4.5 mmol/L (3.6-5.0); SODIUM 138.7 mmol/L (137-145); TOTAL PROTEIN 6.3 g/dL (6.3-8.2)
[2017-02-09 20:51] LABS: APPEARANCE,URINE CLEAR; BILIRUBIN,URINE NEGATIVE (NEGATIVE); GLUCOSE, URINE >=500 mg/dL (NEGATIVE); KETONES,URINE NEGATIVE (NEGATIVE); LEUKOCYTE ESTERASE,URINE NEGATIVE (NEGATIVE); NITRITE,URINE NEGATIVE (NEGATIVE); PROTEIN,URINE 100 mg/dL (NEGATIVE); URINE SPECIFIC GRAVITY 1.018; UROBILINOGEN,URINE NEGATIVE mg/dL (<2.0)
--- NOTE | 2017-02-09 21:11 | RADIOLOGY REPORT (SQ) ---
EXAM DESCRIPTION: U/S SCROTUM W/DOPPLER COMPLETED DATE/TIME: 02/09/2017 9:03 pm REASON FOR STUDY: bilateral scrotal swelling COMPARISON: 11/04/2016. TECHNIQUE: Static and realtime torres scale imaging of the scrotum and testes. Selected color Doppler and spectral images recorded to document blood flow. LIMITATIONS: None. FINDINGS: RIGHT: TESTICLE: Normal size. Normal echotexture. Normal blood flow. No mass. EPIDIDYMIS: Multiple epididymal cysts. HYDROCELE OR VARICOCELE: Large hydrocele containing debris. HERNIA OR EXTRA-TESTICULAR MASS: No. OTHER: No other significant finding. LEFT: TESTICLE: Normal size. Normal echotexture. Normal blood flow. No mass. EPIDIDYMIS: Normal. HYDROCELE OR VARICOCELE: Small hydrocele. HERNIA OR EXTRA-TESTICULAR MASS: No. OTHER: No other significant finding. IMPRESSION: 1. LARGE RIGHT HYDROCELE CONTAINING DEBRIS. MULTIPLE EPIDIDYMAL CYSTS. SMALL LEFT HYDROCELE. NO CH KALPESH FROM PRIOR STUDY. 2. UNREMARKABLE TESTICULAR ULTRASOUND. NO EVIDENCE OF TESTICULAR MASS OR TORSION. TECHNICAL DOCUMENTATION: JOB ID: [id number] [employer]- All Rights Reserved
--- NOTE | 2017-02-09 21:28 | RADIOLOGY REPORT (SQ) ---
EXAM DESCRIPTION: HIP LEFT AP/LATERAL COMPLETED DATE/TIME: 02/09/2017 9:15 pm REASON FOR STUDY: hip pain on standing COMPARISON: 02/06/2010. NUMBER OF VIEWS: Two views. TECHNIQUE: AP pelvis and additional frog-leg view of the left hip. LIMITATIONS: None. FINDINGS: MINERALIZATION: Normal. LEFT HIP: No fracture or dislocation. No worrisome bone lesions. No contour deformity. Mild joint s pace narrowing with sclerosis and small osteophytes. RIGHT HIP: No fracture or dislocation. Mild joint space narrowing with sclerosis and small osteophyt es. No worrisome bone lesions. PUBIS AND ISCHIUM: No fracture. PELVIS: No fracture. SACRUM: No fracture or dislocation. No worrisome bone lesions. LOWER LUMBAR SPINE: No fracture or dislocation. No worrisome bone lesions. No significant disc disea se. SOFT TISSUES: No findings. OTHER: No other significant finding. IMPRESSION: MILD DEGENERATIVE CHANGES. NO ACUTE FINDINGS. TECHNICAL DOCUMENTATION: JOB ID: [id number] [employer]- All Rights Reserved
[2017-02-09] MEDS ORDERED: ACYCLOVIR 800 MG TABLET PO ONE (22:50)
[2017-02-09] MEDS ORDERED: OXYCODONE-ACETAMINOPHEN 5-325 MG TABLET PO ONE (22:50)
[2017-02-09 22:54] VITALS: BP 119/83
[2017-02-09] MEDS ORDERED: ACYCLOVIR 800 MG TABLET ONE (23:19)
== END 2017-02-09 23:30 | disposition home or self-care (01) ==
LOC: ER 18:30
DX: B02.9 Zoster without complications (principal); M25.552 Pain in left hip; I48.91 Unspecified atrial fibrillation; I50.9 Heart failure, unspecified; I25.10 Atherosclerotic heart disease of native coronary artery without angina pectoris; E78.00 Pure hypercholesterolemia, unspecified; I11.0 Hypertensive heart disease with heart failure; J44.9 Chronic obstructive pulmonary disease, unspecified; E11.9 Type 2 diabetes mellitus without complications; I69.951 Hemiplegia and hemiparesis following unspecified cerebrovascular disease affecting right dominant side; Z90.49 Acquired absence of other specified parts of digestive tract; Z95.0 Presence of cardiac pacemaker
CPT/HCPCS: 99284; 36415; 85025; 85610; 80053; 81001; 83036; 73502; 76870; 93976; A9270 ×2; J3490

== ENCOUNTER → 2017-06-27 | Outpatient (CLI) | payer MEDICARE, MEDICAID ==
--- NOTE | 2017-06-27 15:45 | RADIOLOGY REPORT (SQ) ---
EXAM DESCRIPTION: KNEE LEFT 2 VIEWS COMPLETED DATE/TIME: 06/27/2017 12:15 pm REASON FOR STUDY: PAIN IN UNSPECIFIED KNEE M25.569 PAIN IN UNSPECIFIED KNEE COMPARISON: None. NUMBER OF VIEWS: Two views. TECHNIQUE: AP and lateral radiographic images acquired of the left knee. LIMITATIONS: None. FINDINGS: MINERALIZATION: Normal. BONES: No acute fracture or dislocation. No worrisome bone lesions. JOINT: Mild medial compartment joint space narrowing and bony spurring. No suprapatellar knee joint effusion. SOFT TISSUES: No soft tissue swelling. No radio-opaque foreign body. Atherosclerotic arterial vascu lar calcifications. OTHER: No other significant finding. IMPRESSION: Medial compartment joint space narrowing and bony spurring TECHNICAL DOCUMENTATION: JOB ID: [id number] [employer]- All Rights Reserved Reading location - IP/workstation name: [email or web address]
== END ==
LOC: OD 11:47
PROVIDERS: ATTEND Nurse Practitioner Family
DX: M25.562 Pain in left knee (principal); M76.892 Other specified enthesopathies of left lower limb, excluding foot

== ENCOUNTER 2017-07-21 09:10 | Emergency (ER) | payer MEDICARE, MEDICAID ==
[2017-07-21] MEDS ORDERED: MINERAL OIL ENEMA 133 ML PR ONE (12:37)
--- NOTE | 2017-07-21 13:03 | RADIOLOGY REPORT (SQ) ---
EXAM DESCRIPTION: KUB/ABDOMEN (SINGLE VIEW) COMPLETED DATE/TIME: 07/21/2017 12:51 pm REASON FOR STUDY: contipation, abd pain COMPARISON: None. NUMBER OF VIEWS: One view. TECHNIQUE: Supine radiographic image of the abdomen acquired. LIMITATIONS: None. FINDINGS: BOWEL GAS PATTERN: Normal bowel gas pattern. No dilated loops. CALCIFICATIONS: No suspicious calcifications. SOFT TISSUES: No gross mass or suggestion of organomegaly. HARDWARE: Clips right upper quadrant. BONES: No bone lesions or fracture. OTHER: No other significant finding. IMPRESSION: NO RADIOGRAPHIC EVIDENCE FOR ACUTE ABDOMINAL DISEASE. Reading location - IP/workstation name: [email or web address]
[2017-07-21] MEDS ORDERED: MAGNESIUM CITRATE 296 ML BOTTLE PO ONE (13:53)
--- NOTE | 2017-07-21 13:53 | ER Document Report ---
ED GI/ - General Chief Complaint: Constipation Stated Complaint: CONSTIPATION Time Seen by Provider: 07/21/17 09:54 Mode of Arrival: Ambulatory Information source: Patient Notes: Pt is a 72 year old male who presents to the ER today for constipation x 4 days. Pt states that he has chronic constipation and takes milk of magnesia daily which "usually helps" but it hasn't been working the past few days. He states that getting an enema usually works for him in the ER. He denies any abdominal pain or nausea, vomiting. TRAVEL OUTSIDE OF THE [place] IN LAST 30 DAYS: No - Related Data Allergies/Adverse Reactions: No Known Allergies Allergy (Verified 07/21/17 09:11) Past Medical History - General Information source: Patient - Social History Smoking Status: Current Every Day Smoker Family History: None Patient has suicidal ideation: No Patient has homicidal ideation: No - Past Medical History Cardiac Medical History: Reports: Hx Atrial Fibrillation, Hx Congestive Heart Failure, Hx Coronary Artery Disease, Hx Hypercholesterolemia, Hx Hypertension Denies: Hx Heart Attack Pulmonary Medical History: Reports: Hx Asthma, Hx Bronchitis, Hx COPD, Hx Pneumonia Denies: Hx Tuberculosis Neurological Medical History: Reports: Hx Cerebrovascular Accident - RIGHT SIDED WEAKNESS. Denies: Hx Seizures Endocrine Medical History: Reports: Hx Diabetes Mellitus Type 1, Hx Diabetes Mellitus Type 2 Renal/ Medical History: Denies: Hx Benign Prostatic Hyperplasia, Hx End Stage Renal Disease, Hx Kidney Stones, Hx Peritoneal Dialysis GI Medical History: Reports: Hx Gastroesophageal Reflux Disease. Denies: Hx Cirrhosis, Hx Hepatitis, Hx Hiatal Hernia, Hx Ulcer Musculoskeltal Medical History: Denies Hx Arthritis, Denies Hx Multiple Sclerosis Psychiatric Medical History: Reports: Hx Depression Denies: Hx Bipolar Disorder, Hx Schizophrenia Infectious Medical History: Denies: Hx Hepatitis Past Surgical History: Reports: Hx Cardiac Catheterization - stent x1, Hx Cardiac Surgery - pacemaker x's2, Hx Cholecystectomy - 1999, Hx Orthopedic Surgery - jaw fx, Hx Pacemaker - x2. Denies: Hx Open Heart Surgery - Immunizations Hx Diphtheria, Pertussis, Tetanus Vaccination: Yes - < 5 years Hx Pneumococcal Vaccination: 12/24/11 Review of Systems - Review of Systems Constitutional: No symptoms reported EENT: No symptoms reported Cardiovascular: No symptoms reported Respiratory: No symptoms reported Gastrointestinal: See HPI Genitourinary: No symptoms reported Male Genitourinary: No symptoms reported Musculoskeletal: No symptoms reported Skin: No symptoms reported Hematologic/Lymphatic: No symptoms reported Neurological/Psychological: No symptoms reported Physical Exam - Vital signs Vitals: Temp Pulse Resp BP Pulse Ox 98.6 F 96 18 151/83 H 97 07/21/17 09:14 07/21/17 09:14 07/21/17 09:14 07/21/17 09:14 07/21/17 09:14 - Notes Notes: PHYSICAL EXAMINATION: GENERAL: Well-appearing and in no acute distress. HEAD: Atraumatic, normocephalic. EYES: Pupils equal round and reactive to light, extraocular movements intact, sclera anicteric, conjunctiva are normal. NECK: Normal range of motion, supple without lymphadenopathy LUNGS: CTAB and equal. No wheezes rales or rhonchi. HEART: Regular rate and rhythm without murmurs ABDOMEN: Soft, no tenderness. No guarding, no rebound BACK: no vertebral tenderness, normal ROM GI/: no CVA tenderness EXTREMITIES: Normal range of motion, no pitting edema. No cyanosis. NEUROLOGICAL: Cranial nerves grossly intact. Normal sensory/motor exams. PSYCH: Normal mood, normal affect. SKIN: Warm, Dry, normal turgor, no rashes or lesions noted Course - Re-evaluation Re-evalutation: 07/21/17 21:53 pt had some relief from soap suds/mineral oil enema, kub reports normal bowel gas pattern and does not report constipation. the stool I do appreciate on x ray is all in ascending colon. I will start pt on miralax and gave him magnesium citrate today. - Vital Signs Vital signs: Temp Pulse Resp BP Pulse Ox 98.3 F 85 17 153/95 H 100 07/21/17 14:42 07/21/17 14:42 07/21/17 14:42 07/21/17 14:42 07/21/17 14:42 Discharge - Discharge Clinical Impression: Constipation Qualifiers: Constipation type: unspecified constipation type Qualified Code(s): K59.00 - Constipation, unspecified Condition: Stable Disposition: HOME, SELF-CARE Instructions: Constipation ([facility]), Laxative ([facility]) Additional Instructions: Return immediately for any new or worsening symptoms. Follow up with primary care provider, call tomorrow to make followup appointment. Prescriptions: Polyethylene Glycol 3350 [Miralax] 1 cap PO DAILY #527 powder Referrals: OSUNKOYA,KAYLA, MD [Primary Care Provider] - Follow up as needed
[2017-07-21 14:44] VITALS: BP 153/95
== END 2017-07-21 14:44 | disposition home or self-care (01) ==
LOC: ER 09:10
DX: K59.00 Constipation, unspecified (principal); F17.200 Nicotine dependence, unspecified, uncomplicated; I25.10 Atherosclerotic heart disease of native coronary artery without angina pectoris; I10 Essential (primary) hypertension; J44.9 Chronic obstructive pulmonary disease, unspecified; E11.9 Type 2 diabetes mellitus without complications
CPT/HCPCS: 99283; 74018; J3490 ×2

== ENCOUNTER 2017-08-22 10:09 | Emergency (ER) | payer MEDICARE, MEDICAID ==
--- NOTE | 2017-08-22 11:08 | ER Document Report ---
ED General - General Mode of Arrival: Ambulatory Information source: Patient TRAVEL OUTSIDE OF THE [place] IN LAST 30 DAYS: No - General Chief Complaint: Constipation Stated Complaint: ABDOMINAL PAIN Time Seen by Provider: 08/22/17 10:59 Notes: 72 y.o male with a PMHx of Afib and stroke presents to the ED with constipation for the past couple of days. Pt reports that he has tried a bottle of Magnesium Citrate but was without any relief and reports only small pellets of soft brown stool. Pt reports that he takes Oxycodone regularly and has been for years. He denies any abd pain or changes in medications. He denies any vomiting or known fevers. He denies any other complaints that would lead him to believe it was anything other than just constipation. (ABHILASH JOHNSON) - Related Data Allergies/Adverse Reactions: No Known Allergies Allergy (Verified 08/22/17 10:13) Past Medical History - General Information source: Patient - Social History Smoking Status: Never Smoker Chew tobacco use (# tins/day): No Frequency of alcohol use: None Drug Abuse: None Family History: None Patient has suicidal ideation: No Patient has homicidal ideation: No - Past Medical History Cardiac Medical History: Reports: Hx Atrial Fibrillation, Hx Congestive Heart Failure, Hx Coronary Artery Disease, Hx Hypercholesterolemia, Hx Hypertension Pulmonary Medical History: Reports: Hx Asthma, Hx Bronchitis, Hx COPD, Hx Pneumonia Neurological Medical History: Reports: Hx Cerebrovascular Accident - RIGHT SIDED WEAKNESS Endocrine Medical History: Reports: Hx Diabetes Mellitus Type 1, Hx Diabetes Mellitus Type 2 Renal/ Medical History: Denies: Hx Peritoneal Dialysis GI Medical History: Reports: Hx Gastroesophageal Reflux Disease Psychiatric Medical History: Reports: Hx Depression Past Surgical History: Reports: Hx Cardiac Catheterization - stent x1, Hx Cardiac Surgery - pacemaker x's2, Hx Cholecystectomy - 1999, Hx Orthopedic Surgery - jaw fx, Hx Pacemaker - x2 - Immunizations Hx Diphtheria, Pertussis, Tetanus Vaccination: Yes - < 5 years Hx Pneumococcal Vaccination: 12/24/11 Review of Systems - Review of Systems Constitutional: denies: Fever EENT: No symptoms reported Cardiovascular: No symptoms reported Respiratory: No symptoms reported Gastrointestinal: See HPI, Constipation. denies: Vomiting Genitourinary: No symptoms reported Male Genitourinary: No symptoms reported Musculoskeletal: No symptoms reported Skin: No symptoms reported Hematologic/Lymphatic: No symptoms reported Neurological/Psychological: No symptoms reported -: Yes All other systems reviewed and negative Physical Exam - Vital signs Vitals: Temp Pulse Resp BP Pulse Ox 99.2 F 98 20 133/77 H 94 08/22/17 10:15 08/22/17 10:15 08/22/17 10:15 08/22/17 10:15 08/22/17 10:15 - Notes Notes: PHYSICAL EXAM GENERAL: Alert, interacts well. No acute distress. HEAD: Normocephalic, atraumatic. EYES: Patch over the RT eye. LT eye pupil is round, and reactive to light. Extraocular movements intact. ENT: Oral mucosa moist, tongue midline. NECK: Full range of motion. Supple. Trachea midline. LUNGS: Clear to auscultation bilaterally, no wheezes, rales, or rhonchi. No respiratory distress. HEART: Regular rate and rhythm. No murmurs, gallops, or rubs. ABDOMEN: Soft, non-tender. Non-distended. Bowel sounds present in all 4 quadrants. No guarding, rebound, or rigidity. EXTREMITIES: Moves all 4 extremities spontaneously. No edema, radial and dorsalis pedis pulses 2/4 bilaterally. No cyanosis. NEUROLOGICAL: Alert and oriented x3. Normal speech. PSYCH: Normal affect, normal mood. RECTAL: No stool, no impaction. Non-tender, no blood. Good sphincter tone. ( ABHILASH JOHNSON) Course - Re-evaluation Re-evalutation: 08/22/17 14:06 Abdomen is benign, nondistended, no vomiting, no suspicion for obstruction. Patient has extensive history of constipation. Initially patient was interested in trying Relistor however what it was he told me that he has already tried that medication. Rectal examination does not reveal any impaction. Soapsuds enema was given with partial but not large results. At this point patient is content to go home and try GoLYTELY. Patient has used this in the past with a great deal of success, states his doctor refuses to prescribe it for him on a regular basis. Discussed with patient that he should not be taking this more frequently than once a month and that he should request to be referred to a meter installer for further evaluation for his chronic constipation. This is likely related to his medications including chronic oxycodone. (ANGELA FORMAN) - Vital Signs Vital signs: Temp Pulse Resp BP Pulse Ox 99.3 F 98 16 147/89 H 97 08/22/17 14:21 08/22/17 14:21 08/22/17 14:21 08/22/17 14:21 08/22/17 14:21 Discharge - Discharge Clinical Impression: Constipation due to opioid therapy Condition: Stable Disposition: HOME, SELF-CARE Additional Instructions: Constipation Constipation is a common problem. It is especially likely as you get older. Constipation is a common cause of abdominal pain, but sometimes causes no symptoms at all. Causes of constipation include certain medications, dehydration, diets, inactivity, and low-fiber intake. Rarely, it can be a symptom of underlying disease. The physician has evaluated you for this. Avoid constipation by eating a diet high in fiber, fruits, and vegetables. Drink plenty of liquids. Get regular exercise. If possible, avoid constipating medicines like narcotic pain medication. Some vitamin tablets can cause constipation. Stool softeners may be needed for difficult cases. An excellent stool softener is Konsyl which is available at [employer], and [facility] [place]. Just add a teaspoon to a glass of pineapple or orange juice daily or twice a day if needed. Laxatives are useful for occasional constipation. You should use them only when necessary. Too-frequent use can make your bowels dependent on them. Some over the counter laxatives available without prescription are: Milk of Magnesia, 1-2 tablespoons twice a day Dulcolax, 5 mg pill or 10 mg suppository. Citrate of Magnesia, 4-5 ounces a day for a day or two For acute constipation, Fleet's Enemas and Dulcolax suppositories are helpful. Chronic, assisted use of laxatives or enemas is not a good idea. Your bowel may become dependant on them. You do not need to have a bowel movement every day. Many people do fine with a bowel movement every three or four days. You should call your doctor or return for re-evaluation if you pass blood in the stool, or if you develop fever or increasing abdominal pain. Prescriptions: Peg 3350/Na Sulf,Bicarb,Cl/KCl [Golytely Solution 4000 ml] 4,000 ml PO ONCE PRN #1 bottle PRN Reason: Referrals: KAYLA INGRAM MD [Primary Care Provider] - Follow up as needed Scribe Attestation: 08/22/17 18:56 I personally performed the services described in the documentation, reviewed and edited the documentation which was dictated to the scribe in my presence, and it accurately records my words and actions. (ANGELA FORMAN) Scribe Documentation - Scribe Written by Anupama:: Anupama Hogan [id number] 08/22/17 acting as scribe for :: Ally
[2017-08-22 14:25] VITALS: BP 147/89
== END 2017-08-22 14:25 | disposition home or self-care (01) ==
LOC: ER 10:09
DX: K59.03 Drug induced constipation (principal); T40.2X5A Adverse effect of other opioids, initial encounter; I25.10 Atherosclerotic heart disease of native coronary artery without angina pectoris; I10 Essential (primary) hypertension; J44.9 Chronic obstructive pulmonary disease, unspecified; E11.9 Type 2 diabetes mellitus without complications; Z79.891 Long term (current) use of opiate analgesic
CPT/HCPCS: 99283

== ENCOUNTER 2017-09-22 00:30 | Emergency (ER) | payer MEDICARE, OTHER, MEDICAID ==
--- NOTE | 2017-09-22 01:51 | ER Document Report ---
ED Medical Screen (RME) - General Chief Complaint: Abscess Stated Complaint: SPIDER BITE Time Seen by Provider: 09/22/17 01:44 Mode of Arrival: Ambulatory Information source: Patient Notes: Patient is a 72-year-old male who presents with chief complaint of "spider bite " has been present for 2 days. Patient appears to have an abscess just under his right breast. Patient denies any fevers. Patient denies any history of same. Patient denies any history of MRSA infections. Exam: Tender erythematous area with crusted head just inferior to right breast. I have greeted and performed a rapid initial assessment of this patient. A comprehensive ED assessment and evaluation of the patient, analysis of test results and completion of the medical decision making process will be conducted by additional ED providers. Dictation of this chart was performed using voice recognition software; therefore, there may be some unintended grammatical errors. TRAVEL OUTSIDE OF THE [place] IN LAST 30 DAYS: No - Related Data Allergies/Adverse Reactions: No Known Allergies Allergy (Verified 08/22/17 10:13) Past Medical History - Past Medical History Cardiac Medical History: Reports: Hx Atrial Fibrillation, Hx Congestive Heart Failure, Hx Coronary Artery Disease, Hx Hypercholesterolemia, Hx Hypertension Denies: Hx Heart Attack Pulmonary Medical History: Reports: Hx Asthma, Hx Bronchitis, Hx COPD, Hx Pneumonia Denies: Hx Tuberculosis Neurological Medical History: Reports: Hx Cerebrovascular Accident - RIGHT SIDED WEAKNESS. Denies: Hx Seizures Endocrine Medical History: Reports: Hx Diabetes Mellitus Type 1, Hx Diabetes Mellitus Type 2 Renal/ Medical History: Denies: Hx Benign Prostatic Hyperplasia, Hx End Stage Renal Disease, Hx Kidney Stones, Hx Peritoneal Dialysis GI Medical History: Reports: Hx Gastroesophageal Reflux Disease. Denies: Hx Cirrhosis, Hx Hepatitis, Hx Hiatal Hernia, Hx Ulcer Musculoskeltal Medical History: Denies Hx Arthritis, Denies Hx Multiple Sclerosis Psychiatric Medical History: Reports: Hx Depression Denies: Hx Bipolar Disorder, Hx Schizophrenia Infectious Medical History: Denies: Hx Hepatitis Past Surgical History: Reports: Hx Cardiac Catheterization - stent x1, Hx Cardiac Surgery - pacemaker x's2, Hx Cholecystectomy - 2000, Hx Orthopedic Surgery - jaw fx, Hx Pacemaker - x2. Denies: Hx Open Heart Surgery - Immunizations Hx Diphtheria, Pertussis, Tetanus Vaccination: Yes - < 5 years Physical Exam - Vital signs Vitals: Temp Pulse Resp BP Pulse Ox 99.2 F 99 18 158/95 H 99 09/22/17 01:01 09/22/17 01:01 09/22/17 01:01 09/22/17 01:01 09/22/17 01:01 Course - Vital Signs Vital signs: Temp Pulse Resp BP Pulse Ox 99.2 F 99 18 158/95 H 99 09/22/17 01:01 09/22/17 01:01 09/22/17 01:01 09/22/17 01:01 09/22/17 01:01 Doctor's Discharge - Discharge Referrals: KAYLA INGRAM MD [Primary Care Provider] - Follow up as needed
[2017-09-22] MEDS ORDERED: LIDOCAINE 1% INJ-PF (10 MG/ML) 30 ML SDV ONE (04:19)
[2017-09-22] MEDS ORDERED: LIDOCAINE 1%/EPINEPHRINE INJ 20 ML VIAL INJ ONE (05:18)
[2017-09-22] MEDS ORDERED: CEPHALEXIN 500 MG CAPSULE PO ONE (05:19)
[2017-09-22] MEDS ORDERED: SULFAMETHOXAZOLE/TRIMETHOPRIM 800-160 MG TABLET PO ONE (05:19)
--- NOTE | 2017-09-22 05:22 | ER Document Report ---
ED Skin Rash/Insect Bite/Abscs - General Chief Complaint: Abscess Stated Complaint: SPIDER BITE Time Seen by Provider: 09/22/17 01:44 Mode of Arrival: Ambulatory Notes: The patient is a 72-year-old male, past medical history diabetes, A. fib, presents with 3 days of swelling on his right upper abdominal wall below his right breast. He also has a small bump on his nose. He thinks it is a spider bite, but he does not remember any spider and does not remember being bitten. He denies fevers, nausea, vomiting, abdominal pain or any other wounds. TRAVEL OUTSIDE OF THE [place] IN LAST 30 DAYS: No - Related Data Allergies/Adverse Reactions: No Known Allergies Allergy (Verified 08/22/17 10:13) Past Medical History - General Information source: Patient - Social History Smoking Status: Unknown if Ever Smoked Family History: None - Past Medical History Cardiac Medical History: Reports: Hx Atrial Fibrillation, Hx Congestive Heart Failure, Hx Coronary Artery Disease, Hx Hypercholesterolemia, Hx Hypertension Denies: Hx Heart Attack Pulmonary Medical History: Reports: Hx Asthma, Hx Bronchitis, Hx COPD, Hx Pneumonia Denies: Hx Tuberculosis Neurological Medical History: Reports: Hx Cerebrovascular Accident - RIGHT SIDED WEAKNESS. Denies: Hx Seizures Endocrine Medical History: Reports: Hx Diabetes Mellitus Type 1, Hx Diabetes Mellitus Type 2 Renal/ Medical History: Denies: Hx Benign Prostatic Hyperplasia, Hx End Stage Renal Disease, Hx Kidney Stones, Hx Peritoneal Dialysis GI Medical History: Reports: Hx Gastroesophageal Reflux Disease. Denies: Hx Cirrhosis, Hx Hepatitis, Hx Hiatal Hernia, Hx Ulcer Musculoskeltal Medical History: Denies Hx Arthritis, Denies Hx Multiple Sclerosis Psychiatric Medical History: Reports: Hx Depression Denies: Hx Bipolar Disorder, Hx Schizophrenia Infectious Medical History: Denies: Hx Hepatitis Past Surgical History: Reports: Hx Cardiac Catheterization - stent x1, Hx Cardiac Surgery - pacemaker x's2, Hx Cholecystectomy - 1999, Hx Orthopedic Surgery - jaw fx, Hx Pacemaker - x2. Denies: Hx Open Heart Surgery - Immunizations Hx Diphtheria, Pertussis, Tetanus Vaccination: Yes - < 5 years Hx Pneumococcal Vaccination: 12/24/11 Review of Systems - Review of Systems Notes: REVIEW OF SYSTEMS: CONSTITUTIONAL: -fevers, -chills EENT: -eye pain, -difficulty swallowing, -nasal congestion CARDIOVASCULAR: -chest pain, -syncope. RESPIRATORY: -cough, -SOB GASTROINTESTINAL: -abdominal pain, -nausea, -vomiting, -diarrhea GENITOURINARY: -dysuria, -hematuria MUSCULOSKELETAL: -back pain, -neck pain SKIN: +right upper abdominal wall abscess HEMATOLOGIC: -easy bruising or bleeding. LYMPHATIC: -swollen, enlarged glands. NEUROLOGICAL: -altered mental status or loss of consciousness, -headache, - neurologic symptoms PSYCHIATRIC: -anxiety, -depression. ALL OTHER SYSTEMS REVIEWED AND NEGATIVE. Physical Exam - Vital signs Vitals: Temp Pulse Resp BP Pulse Ox 99.2 F 99 18 158/95 H 99 09/22/17 01:01 09/22/17 01:01 09/22/17 01:09/22/17 01:09/22/17 01:01 - Notes Notes: PHYSICAL EXAMINATION: GENERAL: Well-appearing, well-nourished and in no acute distress. HEAD: Atraumatic, normocephalic. EYES: Pupils equal round and reactive to light, extraocular movements intact, sclera anicteric, conjunctiva are normal. ENT: nares patent, oropharynx clear without exudates. Moist mucous membranes. NECK: Normal range of motion, supple without lymphadenopathy LUNGS: Breath sounds clear to auscultation bilaterally and equal. No wheezes rales or rhonchi. HEART: Regular rate and rhythm without murmurs ABDOMEN: Soft, nontender, normoactive bowel sounds. No guarding, no rebound. No masses appreciated. EXTREMITIES: Normal range of motion, no pitting or edema. No cyanosis. NEUROLOGICAL: Cranial nerves grossly intact. Normal speech, normal gait. Normal sensory and motor exams. PSYCH: Normal mood, normal affect. SKIN: 3 cm raised fluctuant superficial abscess over right upper abdominal wall with surrounding erythema. Small pustule on tip of nose. Course - Re-evaluation Re-evalutation: Patient with a superficial right upper anterior abdominal wall abscess that was incised and drained. With the mild surrounding cellulitis and his history of diabetes, will send him home on Keflex and Bactrim with follow-up his primary care physician. - Vital Signs Vital signs: Temp Pulse Resp BP Pulse Ox 99.2 F 99 18 158/95 H 99 09/22/17 01:01 09/22/17 01:01 09/22/17 01:01 09/22/17 01:09/22/17 01:01 Procedures - Incision and Drainage Right Upper Abdomen Time completed: 05:22 Type: Simple Anesthetic type: 1% Lidocaine w/epi mL's of anesthetic: 3 Blade size: 11 I&D procedure: Betadine prep applied Incision Method: Incision made by scalpel Amount/type of drainage: 3 cm Purulent drainage Discharge - Discharge Clinical Impression: Abscess Condition: Stable Disposition: HOME, SELF-CARE Additional Instructions: ABSCESS: You have an abscess (boil). This a pus-forming infection, usually due to staph. Some boils may be left to drain on their own, but most require lancing. From the time the tender lump first appears, it may be three or four days before the abscess is ready to lopez. Local heat and rest help at this stage of treatment. An antibiotic may prevent spread of the infection. Once the abscess is opened, packing may be placed into it. This is done so pus is not sealed inside by premature closure of the cavity. The packing will be removed at your follow-up visit or you may be advised to remove it yourself at home. Sometimes this packing must be replaced a few times during healing. The wound will heal with surprisingly little scar. Depending on the size and location of an abscess, healing can take one to four weeks. You may shower and wash the area around the incision site two or three times a day. Antibiotics may be prescribed, but are usually not necessary after an abscess has been drained. If you develop fever, chills, worsening pain, or increasing swelling in the area, call the doctor or return immediately. POST INCISION AND DRAINAGE: You have had an incision made to allow drainage of an abscess. The incision must remain open so that pus and debris can drain from the wound. If the abscess cavity is large, packing is placed. This keeps the tissues from collapsing and trapping pus inside, while the body shrinks the cavity. The packing may need to be replaced every day or two. The physician will instruct you on the packing. Keep a bulky dressing over the area. Replace it if it becomes saturated with blood or pus. Do not disturb the packing (if present). You may shower and cleanse the area with gentle soap and warm water two or three times a day. Local warmth may be soothing, and may promote faster healing. Return if you develop high fever or chills, or if you note spreading redness, increasing swelling, or increasing tenderness. CEPHALEXIN: The antibiotic you've been prescribed is a member of the cephalosporin class. This type of antibiotic covers a wide variety of infections, including those of the skin, lungs, and urinary tract. It's useful for staph infections. This antibiotic is slightly similar to the penicillin family. In rare cases , a person who is allergic to penicillin will also be allergic to this medication. If you have had a severe allergic reaction to penicillin, and have not taken this antibiotic since that time, notify your doctor. Antibiotics which cover many germs ("broad spectrum" antibiotics) are more likely to cause diarrhea or "yeast" infections. Women prone to vaginal yeast problems may suffer an attack after taking this antibiotic. In infants, oral thrush (white spots "stuck" on the cheek) or yeast diaper rash may result. See your doctor if these problems occur. Call at once if you develop itching, hives , shortness of breath, or lightheadedness. TRIMETHOPRIM-SULFA: You have been given a prescription for trimethoprim-sulfa (TMS, Septra, Bactrim). This is a combination antibiotic of the sulfa class, often used for urinary tract infections, middle ear infections, bronchitis, shigella intestinal infection, and Pneumocystis pneumonia. TMS is usually well-tolerated. Occasional side effects include nausea and decreased appetite. Septra is not recommended for infants less than two months of age. Do not take this medication if you have experienced severe side effects or allergy to sulfa medicine. You should stop this medicine at once and contact your physician if you develop any rash, joint pain, shortness of breath, bruising, or jaundice ( yellow color in the skin), or if you develop any other new or unusual symptoms. FOLLOW-UP CARE: Most simple abscesses will not require a follow up visit. If you had packing placed in the abscess, remove it as instructed by the physician. If you have been referred to a physician for follow-up care, call the physicians office for an appointment as you were instructed or within the next two days. If you experience worsening or a significant change in your symptoms, return to the Emergency Department at any time for re-evaluation. Prescriptions: Cephalexin Monohydrate [Keflex 500 mg Capsule] 500 mg PO TID 7 Days capsule Sulfamethoxazole/Trimethoprim [Bactrim Ds Tablet] 1 each PO BID 10 Days tablet Forms: Elevated Blood Pressure Referrals: KAYLA INGRAM MD [Primary Care Provider] - Follow up as needed
[2017-09-22 05:58] VITALS: BP 179/109
== END 2017-09-22 05:57 | disposition home or self-care (01) ==
LOC: ER 00:30
PROC: 0H97XZZ Drainage of Abdomen Skin, External Approach (ICD-10-PCS; principal; 2017-09-22)
DX: L02.211 Cutaneous abscess of abdominal wall (principal); E11.9 Type 2 diabetes mellitus without complications; I25.10 Atherosclerotic heart disease of native coronary artery without angina pectoris; I10 Essential (primary) hypertension; J44.9 Chronic obstructive pulmonary disease, unspecified
CPT/HCPCS: 99283; 10060; A9270 ×2

== ENCOUNTER 2017-09-24 19:27 | Emergency (ER) | payer MEDICARE, OTHER, MEDICAID ==
[2017-09-24] MEDS ORDERED: NORMAL SALINE 1000 ML 1,000 ML IV ONE (21:38)
--- NOTE | 2017-09-24 21:39 | ER Document Report ---
ED Medical Screen (RME) - General Chief Complaint: Constipation Stated Complaint: CONSTIPATION Time Seen by Provider: 09/24/17 21:35 Notes: 72-year-old male, chief complaint of abdominal pain and swelling for the past 3 days, states that he has taken multiple stool softeners without success, he has passed a little bit of gas, he denies nausea vomiting, fever or chills. Denies any current symptoms. Medical history includes diabetes, hypertension, atrial fibrillation on warfarin , pacemaker. TRAVEL OUTSIDE OF THE [place] IN LAST 30 DAYS: No - Related Data Allergies/Adverse Reactions: No Known Allergies Allergy (Verified 08/22/17 10:13) Past Medical History - Past Medical History Cardiac Medical History: Reports: Hx Atrial Fibrillation, Hx Congestive Heart Failure, Hx Coronary Artery Disease, Hx Hypercholesterolemia, Hx Hypertension Denies: Hx Heart Attack Pulmonary Medical History: Reports: Hx Asthma, Hx Bronchitis, Hx COPD, Hx Pneumonia Denies: Hx Tuberculosis Neurological Medical History: Reports: Hx Cerebrovascular Accident - RIGHT SIDED WEAKNESS. Denies: Hx Seizures Endocrine Medical History: Reports: Hx Diabetes Mellitus Type 1, Hx Diabetes Mellitus Type 2 Renal/ Medical History: Denies: Hx Benign Prostatic Hyperplasia, Hx End Stage Renal Disease, Hx Kidney Stones, Hx Peritoneal Dialysis GI Medical History: Reports: Hx Gastroesophageal Reflux Disease. Denies: Hx Cirrhosis, Hx Hepatitis, Hx Hiatal Hernia, Hx Ulcer Musculoskeltal Medical History: Denies Hx Arthritis, Denies Hx Multiple Sclerosis Psychiatric Medical History: Reports: Hx Depression Denies: Hx Bipolar Disorder, Hx Schizophrenia Infectious Medical History: Denies: Hx Hepatitis Past Surgical History: Reports: Hx Cardiac Catheterization - stent x1, Hx Cardiac Surgery - pacemaker x's2, Hx Cholecystectomy - 1999, Hx Orthopedic Surgery - jaw fx, Hx Pacemaker - x2. Denies: Hx Open Heart Surgery - Immunizations Hx Diphtheria, Pertussis, Tetanus Vaccination: Yes - < 5 years Physical Exam - Vital signs Vitals: Temp Pulse Resp BP Pulse Ox 99.2 F 118 H 22 H 98/60 L 96 09/24/17 19:48 09/24/17 19:48 09/24/17 19:48 09/24/17 19:48 09/24/17 19:48 - Abdominal Tenderness: Tender - Minimal generalized tenderness Course - Re-evaluation Re-evalutation: Patient well-appearing, ambulates without difficulty, however blood pressure borderline and tachycardia noted. Placing on monitor, asking for a room right away. - Vital Signs Vital signs: Temp Pulse Resp BP Pulse Ox 99.2 F 118 H 22 H 98/60 L 96 09/24/17 19:48 09/24/17 19:48 09/24/17 19:48 09/24/17 19:48 09/24/17 19:48 Doctor's Discharge - Discharge Referrals: KAYLA INGRAM MD [Primary Care Provider] - Follow up as needed
--- NOTE | 2017-09-24 22:13 | RADIOLOGY REPORT (SQ) ---
EXAM DESCRIPTION: ACUTE ABDOMEN SERIES COMPLETED DATE/TIME: 09/24/2017 9:59 pm REASON FOR STUDY: abd swelling, no BM for 3 days COMPARISON: None. NUMBER OF VIEWS: Three views. TECHNIQUE: Frontal chest, supine abdomen and upright/ abdomen radiographic images acquired. LIMITATIONS: None. FINDINGS: CHEST: Lungs clear of infiltrates. FREE AIR: None. No abnormal gas collections. BOWEL GAS PATTERN: There is a paucity of bowel gas. No obvious bowel obstruction. CALCIFICATIONS: No suspicious calcifications. HARDWARE: None in the abdomen. SOFT TISSUES: No gross mass or suggestion of organomegaly. BONES: No acute fracture. No worrisome bone lesions. OTHER: No other significant finding. IMPRESSION: NO RADIOGRAPHIC EVIDENCE FOR ACUTE ABDOMINAL DISEASE. TECHNICAL DOCUMENTATION: JOB ID: [id number] [email or web address]- All Rights Reserved Reading location - IP/workstation name: [email or web address]
[2017-09-24 22:37] LABS: ABSOLUTE BASOPHILS # (AUTO) 0.1 10^3/uL (0.0-0.2); ABSOLUTE EOSINOPHILS # (AUTO) 0.1 10^3/uL (0.0-0.6); ABSOLUTE LYMPHOCYTES (AUTO) 2.1 10^3/uL (0.5-4.7); ABSOLUTE MONOCYTES (AUTO) 0.9 10^3/uL (0.1-1.4); ABSOLUTE NEUT (AUTO) 7.9 10^3/uL (1.7-8.2); BASOPHILS % (AUTO) 0.8 % (0-2); EOSINOPHILS % (AUTO) 0.8 % (0-6); HEMATOCRIT 43.6 % (37.9-51.0); LYMPHOCYTES % (AUTO) 19.3 % (13-45); MEAN CORPUSCULAR HGB CONC 34.3 g/dL (32.0-36.0); MEAN CORPUSCULAR VOLUME 88 fl (80-97); MONOCYTES % (AUTO) 8.2 % (3-13); PLATELET COUNT 210 10^3/uL (150-450); RED BLOOD COUNT 4.99 10^6/uL (4.35-5.55); RED CELL DISTRIBUTION WIDTH 14.2 % (11.5-14.0); SEGMENTED NEUTROPHILS % (AUTO) 70.9 % (42-78); TOTAL CELLS COUNTED % (AUTO) 100 %; WHITE BLOOD COUNT 11.1 10^3/uL (4.0-10.5)
[2017-09-24 22:49] LABS: ALANINE AMINOTRANSFERASE 28 U/L (21-72); ALBUMIN 4.3 g/dL (3.5-5.0); ALKALINE PHOSPHATASE 122 U/L (38-126); ANION GAP 11 (5-19); ASPARTATE AMINO TRANSFERASE 25 U/L (17-59); BILIRUBIN,DIRECT 0.4 mg/dL (0.0-0.4); BILIRUBIN,TOTAL 0.6 mg/dL (0.2-1.3); BLOOD UREA NITROGEN 31 mg/dL (7-20); CALCIUM 9.5 mg/dL (8.4-10.2); CARBON DIOXIDE 35 mmol/L (22-30); CHLORIDE 98 mmol/L (98-107); GLUCOSE 179 mg/dL (75-110); POTASSIUM 3.8 mmol/L (3.6-5.0); SODIUM 144.4 mmol/L (137-145); TOTAL PROTEIN 7.1 g/dL (6.3-8.2)
[2017-09-24 22:56] LABS: APPEARANCE,URINE SLIGHTLY-CLOUDY; BILIRUBIN,URINE NEGATIVE (NEGATIVE); GLUCOSE, URINE 50 mg/dL (NEGATIVE); KETONES,URINE TRACE mg/dL (NEGATIVE); LEUKOCYTE ESTERASE,URINE NEGATIVE (NEGATIVE); NITRITE,URINE NEGATIVE (NEGATIVE); PROTEIN,URINE >=500 mg/dL (NEGATIVE)
[2017-09-24 22:57] LABS: INTERNATIONAL RATION (INR) 1.93
[2017-09-24 22:57] LABS: COLOR,URINE YELLOW
--- NOTE | 2017-09-24 23:43 | ER Document Report ---
ED General - General Chief Complaint: Constipation Stated Complaint: CONSTIPATION Time Seen by Provider: 09/24/17 21:35 Notes: Patient is a 72-year-old male with a past medical history of diabetes, hypertension, chronic kidney disease who presents with 24-48 hours of generalized abdominal pain with associated constipation. The patient describes it as a general abdominal discomfort that is a moderate, intermittent, cramping pain. Nothing improves or worsens this pain. He states it feels similar to when he has had severe constipation in the past. He has been trying over-the- counter bowel regimens without any significant relief. Nothing worsens his symptoms. He has been able to tolerate oral intake without difficulty. He denies any associated vomiting. He states that he does feel somewhat better since having 2 bowel movements here in the emergency department. He has not seen his general doctor regarding today's concerns. TRAVEL OUTSIDE OF THE [place] IN LAST 30 DAYS: No - Related Data Allergies/Adverse Reactions: No Known Allergies Allergy (Verified 08/22/17 10:13) Past Medical History - General Information source: Patient - Social History Smoking Status: Former Smoker Chew tobacco use (# tins/day): No Frequency of alcohol use: None Drug Abuse: None Lives with: Alone Family History: Reviewed & Not Pertinent Patient has suicidal ideation: No Patient has homicidal ideation: No - Past Medical History Cardiac Medical History: Reports: Hx Atrial Fibrillation, Hx Congestive Heart Failure, Hx Coronary Artery Disease, Hx Hypercholesterolemia, Hx Hypertension Denies: Hx Heart Attack Pulmonary Medical History: Reports: Hx Asthma, Hx Bronchitis, Hx COPD, Hx Pneumonia Denies: Hx Tuberculosis Neurological Medical History: Reports: Hx Cerebrovascular Accident - RIGHT SIDED WEAKNESS. Denies: Hx Seizures Endocrine Medical History: Reports: Hx Diabetes Mellitus Type 1, Hx Diabetes Mellitus Type 2 Renal/ Medical History: Denies: Hx Benign Prostatic Hyperplasia, Hx End Stage Renal Disease, Hx Kidney Stones, Hx Peritoneal Dialysis GI Medical History: Reports: Hx Gastroesophageal Reflux Disease. Denies: Hx Cirrhosis, Hx Hepatitis, Hx Hiatal Hernia, Hx Ulcer Musculoskeltal Medical History: Denies Hx Arthritis, Denies Hx Multiple Sclerosis Psychiatric Medical History: Reports: Hx Depression Denies: Hx Bipolar Disorder, Hx Schizophrenia Infectious Medical History: Denies: Hx Hepatitis Past Surgical History: Reports: Hx Cardiac Catheterization - stent x1, Hx Cardiac Surgery - pacemaker x's2, Hx Cholecystectomy - 1999, Hx Orthopedic Surgery - jaw fx, Hx Pacemaker - x2. Denies: Hx Open Heart Surgery - Immunizations Hx Diphtheria, Pertussis, Tetanus Vaccination: Yes - < 5 years Hx Pneumococcal Vaccination: 12/24/11 Review of Systems - Review of Systems Notes: Constitutional: Negative for fever. HENT: Negative for sore throat. Eyes: Negative for visual changes. Cardiovascular: Negative for chest pain. Respiratory: Negative for shortness of breath. Gastrointestinal: Positive for abdominal pain and nausea Genitourinary: Negative for dysuria. Musculoskeletal: Negative for back pain. Skin: Negative for rash. Neurological: Negative for headaches, weakness or numbness. 10 point ROS negative except as marked above and in HPI. Physical Exam - Vital signs Vitals: Temp Pulse Resp BP Pulse Ox 99.2 F 118 H 22 H 98/60 L 96 09/24/17 19:48 09/24/17 19:48 09/24/17 19:48 09/24/17 19:48 09/24/17 19:48 Interpretation: Tachycardic Notes: PHYSICAL EXAMINATION: GENERAL: Well-appearing, well-nourished and in no acute distress. HEAD: Atraumatic, normocephalic. EYES: Pupils equal round and reactive to light, extraocular movements intact, sclera anicteric, conjunctiva are normal. ENT: nares patent, oropharynx clear without exudates. Mild dry mucous membranes. NECK: Normal range of motion, supple without lymphadenopathy LUNGS: Breath sounds clear to auscultation bilaterally and equal. No wheezes rales or rhonchi. HEART: Regular rate and rhythm without murmurs ABDOMEN: Obese abdomen, soft, mild focal right upper quadrant tenderness which patient reports is chronic otherwise no localized tenderness, normoactive bowel sounds. No guarding, no rebound. No masses appreciated. EXTREMITIES: Normal range of motion, no pitting or edema. No cyanosis. NEUROLOGICAL: No focal neurological deficits. Moves all extremities spontaneously and on command. PSYCH: Normal mood, normal affect. SKIN: Warm, Dry, normal turgor, no rashes or lesions noted. Course - Re-evaluation Re-evalutation: 09/24/17 23:41 Patient presents with abdominal pain and distention as well as feeling constipated. He also noted a 30kg weight loss in the past 6 months. On exam the patient appears somewhat dehydrated, mild right upper quadrant abdominal tenderness on palpation which patient states is chronic ever since he had a cholecystectomy, mildly distended abdomen but otherwise unremarkable. Abdominal x-ray does not show any significant constipation to account for the patient's symptoms. I am concerned about the possibility of a malignancy given his weight loss as well as recurrent difficulties with having bowel movements. Alternative consideration would include a small bowel structure although he has not had any vomiting. Patient's renal function is also substantially worse than his most recent assessment in his urinalysis does show associated significant dehydration. He is receiving IV fluids. Awaiting CT scan results. 09/25/17 02:59 CT abdomen pelvis is unremarkable. Patient has had several bowel movements and overall feels much better. I have informed the patient about his deterioration in kidney function relative the last time it was checked in January 2017. I have informed him that he will need to follow-up with his primary care doctor regarding this issue as it appears to be chronic versus an acute issue. At this time will discharge with return precautions and follow-up recommendations. Verbal discharge instructions given a the bedside and opportunity for questions given. Medication warnings reviewed. Patient is in agreement with this plan and has verbalized understanding of return precautions and the need for primary care follow-up in the next 24-72 hours. - Vital Signs Vital signs: Temp Pulse Resp BP Pulse Ox 99.2 F 118 H 18 167/69 H 97 09/24/17 19:48 09/24/17 19:48 09/25/17 03:10 09/25/17 03:15 09/25/17 03:10 - Laboratory Result Diagrams: 09/24/17 22:15 09/24/17 22:15 Laboratory results interpreted by me: 09/24/17 09/24/17 09/24/17 22:15 22:15 22:15 WBC 11.1 H RDW 14.2 H PT 23.0 H Carbon Dioxide 35 H BUN 31 H Creatinine 3.89 H Est GFR ( Amer) 18 L Est GFR (Non-Af Amer) 15 L Glucose 179 H Urine Protein Urine Glucose (UA) Urine Ketones Urine Urobilinogen 09/24/17 22:32 WBC RDW PT Carbon Dioxide BUN Creatinine Est GFR ( Amer) Est GFR (Non-Af Amer) Glucose Urine Protein >=500 H Urine Glucose (UA) 50 H Urine Ketones TRACE H Urine Urobilinogen 2.0 H - Diagnostic Test Radiology reviewed: Reports reviewed Discharge - Discharge Clinical Impression: CKD (chronic kidney disease) stage 4, GFR 15-29 ml/min [id number] kidney injury Qualifiers: Acute renal failure type: unspecified Chronic kidney disease stage: unspecified stage Qualified Code(s): N17.9 - Acute kidney failure, unspecified Abdominal pain Qualifiers: Abdominal location: generalized Qualified Code(s): R10.84 - Generalized abdominal pain Condition: Good Disposition: HOME, SELF-CARE Additional Instructions: You have been seen in the Emergency Department (ED) for abdominal pain. Your evaluation did not identify a clear cause of your symptoms but was generally reassuring. Please follow up with your doctor as soon as possible regarding today's emergent visit and the symptoms that are bothering you. Return to the ED if your abdominal pain worsens or fails to improve, you develop bloody vomiting, bloody diarrhea, you are unable to tolerate fluids due to vomiting, fever greater than 101, or other symptoms that concern you. As we discussed your kidney function is worse today than the last time it was checked in January 2017. This appears to be a chronic progression of your kidney dysfunction and EGD follow-up closely with your primary care doctor and kidney doctor regarding this deterioration. Referrals: KAYLA INGRAM MD [Primary Care Provider] - Follow up tomorrow
--- NOTE | 2017-09-25 02:41 | RADIOLOGY REPORT (SQ) ---
EXAM DESCRIPTION: CT ABDOMEN PELVIS WITHOUT IV CONTRAST COMPLETED DATE/TME: 09/24/2017 23:40 CLINICAL HISTORY: 72 years Male, eval sbo Comparison: 8.15.17 Technique: No IV contrast. Oral contrast only. Coronal and sagittal reformat. This exam was performed according to our departmental dose-optimization program, which includes automated exposure control, adjustment of the mA and/or kV according to patient size and/or use of iterative reconstruction technique.[facility]: Dose Right [facility]: CareDose [facility]: Dose Right [facility]: Teradose 4D [facility]: Radio Rebel LIMITATIONS: None Findings: Atherosclerosis, cardiac stimulator leads, marked coronary arterial calcification, cholecystectomy clips, mild perinephric fat stranding, moderate renal volume loss, likely benign right renal cyst not definitively characterized, small right inguinal fat only hernia. Orally administered contrast is seen normally dispersed throughout the small and large bowel. No evidence of bowel obstruction. No free fluid. No free air. No appendicitis; appendix not definitively discerned. Moderate vacuum disc desiccation. Unenhanced lower thorax, abdominopelvic structures, and musculoskeleton appear otherwise grossly unremarkable. Impression: No acute findings.
[2017-09-25 03:17] VITALS: BP 167/69
== END 2017-09-25 03:17 | disposition home or self-care (01) ==
LOC: ER 19:27
DX: N17.9 Acute kidney failure, unspecified (principal); R10.84 Generalized abdominal pain; K59.00 Constipation, unspecified; E11.22 Type 2 diabetes mellitus with diabetic chronic kidney disease; I13.0 Hypertensive heart and chronic kidney disease with heart failure and stage 1 through stage 4 chronic kidney disease, or unspecified chronic kidney disease; N18.4 Chronic kidney disease, stage 4 (severe); I48.91 Unspecified atrial fibrillation; I25.10 Atherosclerotic heart disease of native coronary artery without angina pectoris; I50.9 Heart failure, unspecified; J44.9 Chronic obstructive pulmonary disease, unspecified; Z90.49 Acquired absence of other specified parts of digestive tract; Z95.0 Presence of cardiac pacemaker; R63.4 Abnormal weight loss
CPT/HCPCS: 99284; 96360; 36415; 85025; 85610; 80053; 81001; 74022; 74176; J7030

== ENCOUNTER → 2017-10-02 | Outpatient (CLI) | payer MEDICARE, MEDICAID ==
[2017-10-02 10:28] LABS: CREATININE 3.27 mg/dL (0.52-1.25)
[2017-10-02 11:30] LABS: URINE PROTEIN 49.5 mg/dL (<12)
[2017-10-02 11:36] LABS: 24 HOUR URINE PROTEIN RESULT 743 mg/day (42-225)
== END ==
LOC: OD 08:58
PROVIDERS: ATTEND Internal Medicine Geriatric Medicine
DX: N18.4 Chronic kidney disease, stage 4 (severe) (principal)
CPT/HCPCS: 82575; 84156

== ENCOUNTER → 2017-10-04 | Outpatient (CLI) | payer MEDICARE, MEDICAID ==
--- NOTE | 2017-10-04 15:31 | RADIOLOGY REPORT (SQ) ---
EXAM DESCRIPTION: U/S RETROPERITON (RENAL/AORTA) COMPLETED DATE/TIME: 10/04/2017 2:45 pm REASON FOR STUDY: N18.4 CHRONIC KIDNEY DISEASE, STAGE 4 (SEVERE) N18.4 CHRONIC KIDNEY DISEASE, STAG E 4 (SEVERE) COMPARISON: None. TECHNIQUE: Dynamic and static grayscale images acquired of the kidneys and bladder and recorded on P ACS. Additional selected color Doppler and spectral images recorded. LIMITATIONS: None. FINDINGS: RIGHT KIDNEY: 9.6 cm increase echogenicity No solid or suspicious masses. No hydron ephrosis. No calcifications. LEFT KIDNEY: 11.7 cm Normal echogenicity. No solid or suspicious masses. No hydronephrosis. No calcifications. BLADDER: Not visualized OTHER FINDINGS: No other significant finding. IMPRESSION: Chronic medical renal disease of the right kidney. No significant finding the left kidn ey. TECHNICAL DOCUMENTATION: JOB ID: [id number] [employer]- All Rights Reserved Reading location - IP/workstation name: [email or web address]
== END ==
LOC: RAD 14:51
PROVIDERS: ATTEND Internal Medicine Geriatric Medicine
DX: N18.4 Chronic kidney disease, stage 4 (severe) (principal)
CPT/HCPCS: 76770

== ENCOUNTER → 2017-10-17 | Outpatient (CLI) | payer MEDICARE, MEDICAID ==
[2017-10-17 09:36] LABS: ABSOLUTE EOSINOPHILS # (AUTO) 0.1 10^3/uL (0.0-0.6); ABSOLUTE LYMPHOCYTES (AUTO) 0.9 10^3/uL (0.5-4.7); ABSOLUTE MONOCYTES (AUTO) 0.7 10^3/uL (0.1-1.4); ABSOLUTE NEUT (AUTO) 4.4 10^3/uL (1.7-8.2); BASOPHILS % (AUTO) 0.5 % (0-2); EOSINOPHILS % (AUTO) 2.2 % (0-6); HEMATOCRIT 39.8 % (37.9-51.0); HEMOGLOBIN 13.4 g/dL (13.5-17.0); MEAN CORPUSCULAR HEMOGLOBIN 29.9 pg (27.0-33.4); MEAN CORPUSCULAR HGB CONC 33.7 g/dL (32.0-36.0); MEAN CORPUSCULAR VOLUME 89 fl (80-97); MONOCYTES % (AUTO) 11.8 % (3-13); PLATELET COUNT 177 10^3/uL (150-450); RED BLOOD COUNT 4.48 10^6/uL (4.35-5.55); RED CELL DISTRIBUTION WIDTH 13.9 % (11.5-14.0); SEGMENTED NEUTROPHILS % (AUTO) 70.5 % (42-78); TOTAL CELLS COUNTED % (AUTO) 100 %; WHITE BLOOD COUNT 6.2 10^3/uL (4.0-10.5)
[2017-10-17 09:53] LABS: ALANINE AMINOTRANSFERASE 87 U/L (21-72); ALBUMIN 3.7 g/dL (3.5-5.0); ALKALINE PHOSPHATASE 301 U/L (38-126); ANION GAP 11 (5-19); ASPARTATE AMINO TRANSFERASE 51 U/L (17-59); BILIRUBIN,DIRECT 0.3 mg/dL (0.0-0.4); BILIRUBIN,TOTAL 0.7 mg/dL (0.2-1.3); BLOOD UREA NITROGEN 36 mg/dL (7-20); CALCIUM 9.7 mg/dL (8.4-10.2); CARBON DIOXIDE 29 mmol/L (22-30); CHLORIDE 104 mmol/L (98-107); GLUCOSE 57 mg/dL (75-110); PHOSPHORUS 4.3 mg/dL (2.5-4.5); POTASSIUM 4.6 mmol/L (3.6-5.0); SODIUM 144.1 mmol/L (137-145); TOTAL PROTEIN 6.3 g/dL (6.3-8.2)
[2017-10-17 09:58] LABS: APPEARANCE,URINE CLEAR; BILIRUBIN,URINE NEGATIVE (NEGATIVE); COLOR,URINE YELLOW; GLUCOSE, URINE NEGATIVE (NEGATIVE); KETONES,URINE NEGATIVE (NEGATIVE); LEUKOCYTE ESTERASE,URINE NEGATIVE (NEGATIVE); NITRITE,URINE NEGATIVE (NEGATIVE); PROTEIN,URINE 100 mg/dL (NEGATIVE); URINE SPECIFIC GRAVITY 1.011; UROBILINOGEN,URINE NEGATIVE mg/dL (<2.0)
== END ==
LOC: OD 09:03
PROVIDERS: ATTEND Internal Medicine Nephrology
DX: E11.22 Type 2 diabetes mellitus with diabetic chronic kidney disease (principal); I12.9 Hypertensive chronic kidney disease with stage 1 through stage 4 chronic kidney disease, or unspecified chronic kidney disease; N18.4 Chronic kidney disease, stage 4 (severe)
CPT/HCPCS: 36415; 80053; 81001; 83970; 84100; 85025

== ENCOUNTER → 2018-01-17 | Outpatient (CLI) | payer MEDICARE, MEDICAID ==
[2018-01-17 11:18] LABS: HEMATOCRIT 43.1 % (37.9-51.0); HEMOGLOBIN 14.5 g/dL (13.5-17.0); MEAN CORPUSCULAR HEMOGLOBIN 29.5 pg (27.0-33.4); MEAN CORPUSCULAR HGB CONC 33.6 g/dL (32.0-36.0); MEAN CORPUSCULAR VOLUME 88 fl (80-97); PLATELET COUNT 175 10^3/uL (150-450); RED CELL DISTRIBUTION WIDTH 14.4 % (11.5-14.0); WHITE BLOOD COUNT 8.1 10^3/uL (4.0-10.5)
[2018-01-17 11:22] LABS: APPEARANCE,URINE SLIGHTLY-CLOUDY; BILIRUBIN,URINE NEGATIVE (NEGATIVE); COLOR,URINE YELLOW; GLUCOSE, URINE 50 mg/dL (NEGATIVE); KETONES,URINE NEGATIVE (NEGATIVE); LEUKOCYTE ESTERASE,URINE NEGATIVE (NEGATIVE); NITRITE,URINE NEGATIVE (NEGATIVE); PROTEIN,URINE 100 mg/dL (NEGATIVE); URINE SPECIFIC GRAVITY 1.016; UROBILINOGEN,URINE NEGATIVE mg/dL (<2.0)
[2018-01-17 11:39] LABS: ANION GAP 11 (5-19); BLOOD UREA NITROGEN 35 mg/dL (7-20); CALCIUM 9.3 mg/dL (8.4-10.2); CARBON DIOXIDE 32 mmol/L (22-30); CHLORIDE 103 mmol/L (98-107); GLUCOSE 68 mg/dL (75-110); POTASSIUM 5.5 mmol/L (3.6-5.0); SODIUM 145.7 mmol/L (137-145)
== END ==
LOC: OD 10:36
PROVIDERS: ATTEND Physician Assistant Medical
DX: E11.22 Type 2 diabetes mellitus with diabetic chronic kidney disease (principal); I12.9 Hypertensive chronic kidney disease with stage 1 through stage 4 chronic kidney disease, or unspecified chronic kidney disease; N18.4 Chronic kidney disease, stage 4 (severe)
CPT/HCPCS: 36415; 80048; 81001; 85027

== ENCOUNTER → 2018-01-21 | Outpatient (CLI) | payer MEDICARE, MEDICAID | LOC: OD 10:43 | PROVIDERS: ATTEND Physician Assistant Medical | DX: E87.5 Hyperkalemia (principal); N18.4 Chronic kidney disease, stage 4 (severe) | CPT/HCPCS: 36415; 84132 ==

== ENCOUNTER 2018-03-24 13:53 | Emergency (ER) | payer MEDICARE, MEDICAID ==
--- NOTE | 2018-03-24 15:13 | RADIOLOGY REPORT (SQ) ---
EXAM DESCRIPTION: CHEST SINGLE VIEW COMPLETED DATE/TIME: 03/24/2018 2:31 pm REASON FOR STUDY: difficulty breathing COMPARISON: 12/19/2015. NUMBER OF VIEWS: One view. TECHNIQUE: Single frontal radiographic view of the chest acquired. LIMITATIONS: None. FINDINGS: LUNGS AND PLEURA: Mild atelectasis/scarring. No opacities, masses or pneumothorax. No pl eural effusion. MEDIASTINUM AND HILAR STRUCTURES: No masses. Contour normal. HEART AND VASCULAR STRUCTURES: Heart enlarged without failure. Normal vasculature. BONES: No acute findings. HARDWARE: Pacemaker. OTHER: No other significant finding. IMPRESSION: HEART ENLARGED WITHOUT FAILURE. NO OTHER SIGNIFICANT RADIOGRAPHIC FINDING IN THE CHEST. TECHNICAL DOCUMENTATION: JOB ID: [id number] [employer]- All Rights Reserved Reading location - IP/workstation name: [email or web address]
--- NOTE | 2018-03-24 15:41 | ER Document Report ---
ED General - General Chief Complaint: Breathing Difficulty Stated Complaint: WEAKNESS Time Seen by Provider: 03/24/18 15:09 Mode of Arrival: Medic Information source: Patient Notes: 72-year-old male brought to the emergency department for "not feeling well". Patient states that he has been feeling this way for the last few days. Patient is unable to describe exactly what he is feeling. He denies any fever, chills, rhinorrhea, sore throat, cough, chest pain, shortness of breath, abdominal pain, nausea, vomiting. Patient has had intermittent constipation. He denies any dysuria, hematuria, numbness, tingling, weakness, ataxia, slurred speech, vision changes. Patient has a history of hypertension, diabetes, hyperlipidemia, A. fib, asthma. He follows up with Dr. Ingram. TRAVEL OUTSIDE OF THE [place] IN LAST 30 DAYS: No - HPI Onset: Other - Last few days Quality of pain: No pain Associated symptoms: None Exacerbated by: Denies Relieved by: Denies Similar symptoms previously: No Recently seen / treated by doctor: No - Related Data Allergies/Adverse Reactions: No Known Allergies Allergy (Verified 08/22/17 10:13) Past Medical History - General Information source: Patient - Social History Smoking Status: Unknown if Ever Smoked Chew tobacco use (# tins/day): No Frequency of alcohol use: None Drug Abuse: None Family History: Reviewed & Not Pertinent Patient has suicidal ideation: No Patient has homicidal ideation: No - Past Medical History Cardiac Medical History: Reports: Hx Atrial Fibrillation, Hx Congestive Heart Failure, Hx Coronary Artery Disease, Hx Hypercholesterolemia, Hx Hypertension Denies: Hx Heart Attack Pulmonary Medical History: Reports: Hx Asthma, Hx Bronchitis, Hx COPD, Hx P neum[place] Denies: Hx Tuberculosis Neurological Medical History: Reports: Hx Cerebrovascular Accident - RIGHT SIDED WEAKNESS. Denies: Hx Seizures Endocrine Medical History: Reports: Hx Diabetes Mellitus Type 1, Hx Diabetes Mellitus Type 2 Renal/ Medical History: Denies: Hx Benign Prostatic Hyperplasia, Hx End Stage Renal Disease, Hx Kidney Stones, Hx Peritoneal Dialysis GI Medical History: Reports: Hx Gastroesophageal Reflux Disease. Denies: Hx Cirrhosis, Hx Hepatitis, Hx Hiatal Hernia, Hx Ulcer Musculoskeletal Medical History: Denies Hx Arthritis, Denies Hx Multiple Sclerosis Psychiatric Medical History: Reports: Hx Depression Denies: Hx Bipolar Disorder, Hx Schizophrenia Infectious Medical History: Denies: Hx Hepatitis Past Surgical History: Reports: Hx Cardiac Catheterization - stent x1, Hx Cardiac Surgery - pacemaker x's2, Hx Cholecystectomy - 2000, Hx Orthopedic Surgery - jaw fx, Hx Pacemaker - x2. Denies: Hx Open Heart Surgery - Immunizations Hx Diphtheria, Pertussis, Tetanus Vaccination: Yes - < 5 years Hx Pneumococcal Vaccination: 12/24/11 Review of Systems - Review of Systems Constitutional: No symptoms reported EENT: No symptoms reported Cardiovascular: No symptoms reported Respiratory: No symptoms reported Gastrointestinal: No symptoms reported Genitourinary: No symptoms reported Male Genitourinary: No symptoms reported Musculoskeletal: No symptoms reported Skin: No symptoms reported Hematologic/Lymphatic: No symptoms reported Neurological/Psychological: No symptoms reported -: Yes All other systems reviewed and negative Physical Exam - Vital signs Vitals: Pulse 62 03/24/18 14:04 - Notes Notes: PHYSICAL EXAMINATION: GENERAL: Well-appearing, well-nourished and in no acute distress. HEAD: Atraumatic, normocephalic. EYES: Pupil equal round and reactive to light, extraocular movements intact, sclera anicteric, conjunctiva normal. ENT: Nares patent, oropharynx clear without exudates. Moist mucous membranes. NECK: Normal range of motion, supple without lymphadenopathy LUNGS: Breath sounds clear to auscultation bilaterally and equal. No wheezes rales or rhonchi. HEART: Regular rate and rhythm without murmurs ABDOMEN: Soft, nontender, nondistended abdomen. No guarding, no rebound. No masses appreciated. Musculoskeletal: Normal range of motion, no pitting or edema. No cyanosis. NEUROLOGICAL: Cranial nerves grossly intact. Normal speech, normal gait. Normal sensory, motor exams PSYCH: Normal mood, normal affect. SKIN: Warm, Dry, normal turgor, no rashes or lesions noted. Course - Re-evaluation Re-evalutation: 03/24/18 19:02 Patient's family is at bedside. They state that he has just been generally weak. Patient continues to deny any complaints. Labs and imaging obtained. Chest x-ray does not show any signs of infection. Urinalysis does not show any signs of infection. Labs were obtained. Patient's white blood cell count is normal. His troponin is within his baseline range. Patient's glucose initially was 268. He was given a liter of fluids. On reevaluation it was 227. Patient's creatinine is chronically elevated. He follows up with Dr. Kuhn, nephrology, but does not get dialysis yet. EKG shows a paced rhythm. Potassium is 5.2. I will not treat the mildly elevated hyperkalemia. Patient says he has an appointment with Dr. Ingram this week. I told him that his potassium is slightly elevated and that he needs to get repeat lab work to ensure the potassium is not getting higher. I told him if he feels worse to return to the emergency department for reevaluation. I discussed the patient with Dr. Espinoza. He agrees to not treat the potassium at this time but to have him keep his appointment this week. - Vital Signs Vital signs: Temp Pulse Resp BP Pulse Ox 62 03/24/18 14:04 - Laboratory Result Diagrams: 03/24/18 16:30 03/24/18 16:30 Laboratory results interpreted by me: 03/24/18 03/24/18 03/24/18 15:49 16:30 16:30 RBC 4.04 L Hgb 12.2 L Hct 35.8 L RDW 14.5 H Plt Count 134 L Seg Neutrophils % 82.1 H Lymphocytes % 7.7 L PT APTT Sodium 135.4 L Potassium 5.2 H BUN 35 H Creatinine 2.81 H Est GFR ( Amer) 27 L Est GFR (Non-Af Amer) 22 L Glucose 265 H POC Glucose 268 H Calcium 7.9 L Total Protein 5.8 L Albumin 3.4 L Urine Protein Urine Glucose (UA) Urine Ascorbic Acid 03/24/18 03/24/18 03/24/18 16:30 17:30 18:23 RBC Hgb Hct RDW Plt Count Seg Neutrophils % Lymphocytes % PT 32.4 H APTT 47.8 H Sodium Potassium BUN Creatinine Est GFR ( Amer) Est GFR (Non-Af Amer) Glucose POC Glucose 227 H Calcium Total Protein Albumin Urine Protein 100 H Urine Glucose (UA) >=500 H Urine Ascorbic Acid 40 H Discharge - Discharge Clinical Impression: Generalized weakness, Hyperkalemia, Hyperglycemia Condition: Stable Disposition: HOME, SELF-CARE Instructions: Hyperglycemia ([facility]), Weakness ([facility]) Additional Instructions: Contact your primary care physician this week to have your blood work redrawn to evaluate for your slightly elevated potassium. Continue taking your medication as directed. Return to the emergency department if you begin experiencing worsening symptoms. Referrals: KAYLA INGRAM MD [Primary Care Provider] - Follow up as needed
[2018-03-24] MEDS ORDERED: NORMAL SALINE 500 ML IV ONE ×2 (15:43→18:04)
--- NOTE | 2018-03-24 16:35 | EKG REPORT ---
SEVERITY:- ABNORMAL ECG - AFIB/FLUT AND V-PACED COMPLEXES : Confirmed by: Unique Cortes MD 24-Mar-2018 16:34:09
[2018-03-24 16:47] LABS: ABSOLUTE LYMPHOCYTES (AUTO) 0.7 10^3/uL (0.5-4.7); ABSOLUTE MONOCYTES (AUTO) 0.9 10^3/uL (0.1-1.4); ABSOLUTE NEUT (AUTO) 7.9 10^3/uL (1.7-8.2); BASOPHILS % (AUTO) 0.5 % (0-2); EOSINOPHILS % (AUTO) 0.2 % (0-6); HEMATOCRIT 35.8 % (37.9-51.0); HEMOGLOBIN 12.2 g/dL (13.5-17.0); LYMPHOCYTES % (AUTO) 7.7 % (13-45); MEAN CORPUSCULAR HEMOGLOBIN 30.1 pg (27.0-33.4); MEAN CORPUSCULAR HGB CONC 33.9 g/dL (32.0-36.0); MEAN CORPUSCULAR VOLUME 89 fl (80-97); MONOCYTES % (AUTO) 9.5 % (3-13); PLATELET COUNT 134 10^3/uL (150-450); RED BLOOD COUNT 4.04 10^6/uL (4.35-5.55); RED CELL DISTRIBUTION WIDTH 14.5 % (11.5-14.0); SEGMENTED NEUTROPHILS % (AUTO) 82.1 % (42-78); TOTAL CELLS COUNTED % (AUTO) 100 %; WHITE BLOOD COUNT 9.7 10^3/uL (4.0-10.5)
[2018-03-24 16:54] LABS: INTERNATIONAL RATION (INR) 2.99; PROTHROMBIN TIME 32.4 SEC (11.4-15.4)
[2018-03-24 16:55] LABS: PARTIAL THROMBOPLASTIN TIME 47.8 SEC (23.5-35.8)
[2018-03-24 16:58] LABS: ALBUMIN 3.4 g/dL (3.5-5.0); ANION GAP 5 (5-19); BLOOD UREA NITROGEN 35 mg/dL (7-20); CARBON DIOXIDE 30 mmol/L (22-30); CHLORIDE 100 mmol/L (98-107); GLUCOSE 265 mg/dL (75-110); POTASSIUM 5.2 mmol/L (3.6-5.0); SODIUM 135.4 mmol/L (137-145); TOTAL PROTEIN 5.8 g/dL (6.3-8.2)
[2018-03-24 16:59] LABS: ALANINE AMINOTRANSFERASE 25 U/L (21-72); ALKALINE PHOSPHATASE 107 U/L (38-126); ASPARTATE AMINO TRANSFERASE 22 U/L (17-59); BILIRUBIN,DIRECT 0.3 mg/dL (0.0-0.4); BILIRUBIN,TOTAL 0.7 mg/dL (0.2-1.3); CALCIUM 7.9 mg/dL (8.4-10.2)
[2018-03-24 17:54] LABS: APPEARANCE,URINE CLEAR; BILIRUBIN,URINE NEGATIVE (NEGATIVE); COLOR,URINE YELLOW; GLUCOSE, URINE >=500 mg/dL (NEGATIVE); KETONES,URINE NEGATIVE (NEGATIVE); LEUKOCYTE ESTERASE,URINE NEGATIVE (NEGATIVE); NITRITE,URINE NEGATIVE (NEGATIVE); PROTEIN,URINE 100 mg/dL (NEGATIVE); URINE SPECIFIC GRAVITY 1.018; UROBILINOGEN,URINE NEGATIVE mg/dL (<2.0)
== END 2018-03-24 19:17 | disposition home or self-care (01) ==
LOC: ER 13:53
DX: E11.65 Type 2 diabetes mellitus with hyperglycemia (principal); E87.5 Hyperkalemia; K59.00 Constipation, unspecified; R53.1 Weakness; I10 Essential (primary) hypertension; I25.10 Atherosclerotic heart disease of native coronary artery without angina pectoris; J44.9 Chronic obstructive pulmonary disease, unspecified; Z86.73 Personal history of transient ischemic attack (TIA), and cerebral infarction without residual deficits; Z95.5 Presence of coronary angioplasty implant and graft; Z95.0 Presence of cardiac pacemaker
CPT/HCPCS: 93005; 99285; 96360; 96361; 36415; 82962; 85025; 85610; 85730; 80053; 81001; 84484; 71045; 93010; J7040

== ENCOUNTER → 2018-04-16 | Outpatient (CLI) | payer MEDICARE, MEDICAID ==
[2018-04-16 13:23] LABS: HEMATOCRIT 38.9 % (37.9-51.0); HEMOGLOBIN 13.1 g/dL (13.5-17.0); MEAN CORPUSCULAR HEMOGLOBIN 29.6 pg (27.0-33.4); MEAN CORPUSCULAR HGB CONC 33.8 g/dL (32.0-36.0); MEAN CORPUSCULAR VOLUME 88 fl (80-97); PLATELET COUNT 158 10^3/uL (150-450); RED BLOOD COUNT 4.44 10^6/uL (4.35-5.55); RED CELL DISTRIBUTION WIDTH 14.8 % (11.5-14.0); WHITE BLOOD COUNT 7.7 10^3/uL (4.0-10.5)
[2018-04-16 13:32] LABS: APPEARANCE,URINE CLEAR; BILIRUBIN,URINE NEGATIVE (NEGATIVE); COLOR,URINE YELLOW; GLUCOSE, URINE >=500 mg/dL (NEGATIVE); KETONES,URINE NEGATIVE (NEGATIVE); LEUKOCYTE ESTERASE,URINE NEGATIVE (NEGATIVE); NITRITE,URINE NEGATIVE (NEGATIVE); PROTEIN,URINE 100 mg/dL (NEGATIVE); URINE SPECIFIC GRAVITY 1.017; UROBILINOGEN,URINE NEGATIVE mg/dL (<2.0)
[2018-04-16 13:46] LABS: ANION GAP 7 (5-19); BLOOD UREA NITROGEN 42 mg/dL (7-20); CALCIUM 8.5 mg/dL (8.4-10.2); CARBON DIOXIDE 31 mmol/L (22-30); CHLORIDE 98 mmol/L (98-107); GLUCOSE 285 mg/dL (75-110); PHOSPHORUS 3.2 mg/dL (2.5-4.5); POTASSIUM 4.9 mmol/L (3.6-5.0); SODIUM 135.9 mmol/L (137-145)
[2018-04-16 13:48] LABS: UR PRO/CREAT RATIO RESULT 0.9 mg/mg (0.0-0.2); URINE CREATININE 119.5 mg/dL (22-328); URINE PROTEIN 102.8 mg/dL (<12)
== END ==
LOC: OD 12:41
PROVIDERS: ATTEND Physician Assistant Medical
DX: E11.22 Type 2 diabetes mellitus with diabetic chronic kidney disease (principal); N18.4 Chronic kidney disease, stage 4 (severe); E87.5 Hyperkalemia
CPT/HCPCS: 36415; 80048; 81001; 82570; 83970; 84100; 84156; 85027

== ENCOUNTER 2018-07-12 17:25 | Emergency (ER) | payer MEDICARE, MEDICAID ==
--- NOTE | 2018-07-12 17:55 | ER Document Report ---
ED Medical Screen (RME) - General Chief Complaint: Knee Pain Stated Complaint: RIGHT KNEE PAIN Time Seen by Provider: 07/12/18 17:43 Primary Care Provider: KAYLA INGRAM MD [Primary Care Provider] - Follow up as needed Mode of Arrival: Medic Information source: Patient Notes: 73-year-old male patient presented to ED via EMS for pain in his right lower leg. Patient has an extensive medical history that I have updated. He presented today for pain in his right calf. He states he got up to turn his breathing machine off when he had sudden severe pain in the right leg. He states it was so severe that it caused him to fall to the couch. He did not fall and hit anything. He has not injured his leg the pain was just sudden. Patient does have tenderness to the back of the right calf to palpation. He also has several small abrasions to the front of the leg that he states is been there for a while. Patient is on Coumadin. Pulse ox is fluctuating between 88 and 100 on room air. When he is on 2 L of oxygen goes to aid 90 and 100 when he is on 1 L goes between 90 and 100. I have greeted and performed a rapid initial assessment of this patient. A comprehensive ED assessment and evaluation of the patient, analysis of test results and completion of medical decision making process will be conducted by an additional ED providers. TRAVEL OUTSIDE OF THE [place] IN LAST 30 DAYS: No - Related Data Allergies/Adverse Reactions: No Known Allergies Allergy (Verified 07/12/18 17:27) Past Medical History - Social History Chew tobacco use (# tins/day): No Frequency of alcohol use: None Drug Abuse: Prescription drugs - Past Medical History Cardiac Medical History: Reports: Hx Atrial Fibrillation, Hx Congestive Heart Failure, Hx Coronary Artery Disease, Hx Hypercholesterolemia, Hx Hypertension Pulmonary Medical History: Reports: Hx Asthma, Hx Bronchitis, Hx COPD, Hx Pneumonia EENT Medical History: Reports: None Neurological Medical History: Reports: Hx Cerebrovascular Accident - RIGHT SIDED WEAKNESS Endocrine Medical History: Reports: Hx Diabetes Mellitus Type 2 Renal/ Medical History: Reports: None Malignancy Medical History: Reports None GI Medical History: Reports: Hx Gastroesophageal Reflux Disease Musculoskeltal Medical History: Reports Hx Musculoskeletal Deformity, Reports Hx Musculoskeletal Trauma Skin Medical History: Reports None Psychiatric Medical History: Reports: Hx Depression Traumatic Medical History: Reports: None Infectious Medical History: Reports: None Past Surgical History: Reports: Hx Cardiac Catheterization - stent x1, Hx Cardiac Surgery - pacemaker x's2, Hx Cholecystectomy - 2000, Hx Orthopedic Surgery - jaw fx, Hx Pacemaker - x2 - Immunizations Hx Diphtheria, Pertussis, Tetanus Vaccination: Yes - < 5 years Physical Exam - Vital signs Vitals: Temp Pulse Resp BP Pulse Ox 98.4 F 90 16 163/93 H 90 L 07/12/18 17:33 07/12/18 17:33 07/12/18 17:33 07/12/18 17:33 07/12/18 17:33 Course - Vital Signs Vital signs: Temp Pulse Resp BP Pulse Ox 98.4 F 90 16 163/93 H 90 L 07/12/18 17:33 07/12/18 17:33 07/12/18 17:33 07/12/18 17:33 07/12/18 17:33 Doctor's Discharge - Discharge Referrals: KAYLA INGRAM MD [Primary Care Provider] - Follow up as needed
[2018-07-12] MEDS ORDERED: MORPHINE SULFATE 10 MG/ML INJ IV ONE (18:25)
[2018-07-12] MEDS ORDERED: ONDANSETRON HCL INJ/PF 4 MG/2 ML SDV IV ONE (18:26)
[2018-07-12] MEDS ORDERED: HEPARIN SODIUM,PORCINE/D5W 25,000 UNIT/250 ML RTUINJ IV PRN (18:48)
[2018-07-12] MEDS ORDERED: HEPARIN SOD (PORCINE) 1,000 UNIT/ML 10 ML VIAL IV ONE (18:48)
--- NOTE | 2018-07-12 18:55 | RADIOLOGY REPORT (SQ) ---
EXAM DESCRIPTION: CHEST SINGLE VIEW COMPLETED DATE/TIME: 07/12/2018 6:43 pm REASON FOR STUDY: hypoxia, fever COMPARISON: 03/24/2018 EXAM PARAMETERS: NUMBER OF VIEWS: One view. TECHNIQUE: Single frontal radiographic view of the chest acquired. RADIATION DOSE: NA LIMITATIONS: None. FINDINGS: LUNGS AND PLEURA: New parenchymal opacity at the left base. Right lung is clear. MEDIASTINUM AND HILAR STRUCTURES: No masses. Contour normal. HEART AND VASCULAR STRUCTURES: Heart normal in size. Normal vasculature. BONES: No acute findings. HARDWARE: None in the chest. OTHER: No other significant finding. IMPRESSION: Left lower lobe pneumonia. TECHNICAL DOCUMENTATION: JOB ID: [id number] [employer]- All Rights Reserved Reading location - IP/workstation name: [email or web address]
[2018-07-12] MEDS ORDERED: HYDROMORPHONE HCL INJ/PF 2 MG/ML AMPULE IV ONE (19:16)
[2018-07-12 19:17] LABS: HEMOGLOBIN 12.2 g/dL (13.5-17.0); MEAN CORPUSCULAR HEMOGLOBIN 30.1 pg (27.0-33.4); MEAN CORPUSCULAR HGB CONC 33.9 g/dL (32.0-36.0); MEAN CORPUSCULAR VOLUME 89 fl (80-97); PLATELET COUNT 127 10^3/uL (150-450); RED BLOOD COUNT 4.04 10^6/uL (4.35-5.55); RED CELL DISTRIBUTION WIDTH 14.7 % (11.5-14.0); WHITE BLOOD COUNT 14.1 10^3/uL (4.0-10.5)
[2018-07-12] MEDS ORDERED: LEVOFLOXACIN 750 MG/D5W RTU 750 MG/150 ML RTUPB IV ONE (19:28)
[2018-07-12 19:31] LABS: ABSOLUTE LYMPHOCYTES# (MANUAL) 0.3 10^3/uL (0.5-4.7); ABSOLUTE NEUTROPHILS# (MANUAL) 12.8 10^3/uL (1.7-8.2); ALANINE AMINOTRANSFERASE 27 U/L (21-72); ALBUMIN 3.8 g/dL (3.5-5.0); ALKALINE PHOSPHATASE 91 U/L (38-126); ANION GAP 11 (5-19); ASPARTATE AMINO TRANSFERASE 21 U/L (17-59); BASOPHILS % (MANUAL) 0 % (0-2); BILIRUBIN,DIRECT 0.4 mg/dL (0.0-0.4); BILIRUBIN,TOTAL 0.9 mg/dL (0.2-1.3); BLOOD UREA NITROGEN 45 mg/dL (7-20); CARBON DIOXIDE 26 mmol/L (22-30); CHLORIDE 101 mmol/L (98-107); EOSINOPHILS % (MANUAL) 0 % (0-6); GLUCOSE 193 mg/dL (75-110); LYMPHOCYTES % (MANUAL) 2 % (13-45); MONOCYTES % (MANUAL) 7 % (3-13); POTASSIUM 4.1 mmol/L (3.6-5.0); SEGMENTED NEUTROPHILS % (MAN) 91 % (42-78); SODIUM 137.7 mmol/L (137-145); TOTAL CELLS COUNTED 100; TOTAL PROTEIN 6.6 g/dL (6.3-8.2)
[2018-07-12 19:32] LABS: PLATELET COMMENT DECREASED
[2018-07-12 19:33] LABS: PROTHROMBIN TIME 21.7 SEC (11.4-15.4)
[2018-07-12 19:34] LABS: PARTIAL THROMBOPLASTIN TIME 35.9 SEC (23.5-35.8); RBC MORPHOLOGY COMMENT NORMO-CYTIC/CHROMIC
--- NOTE | 2018-07-12 19:35 | ER Document Report ---
ED General - General Chief Complaint: Knee Pain Stated Complaint: RIGHT KNEE PAIN Time Seen by Provider: 07/12/18 17:43 Primary Care Provider: KAYLA INGRAM MD [Primary Care Provider] - Follow up as needed Mode of Arrival: Medic TRAVEL OUTSIDE OF THE [place] IN LAST 30 DAYS: No - HPI Notes: Patient is a 73-year-old gentleman who presents to the emergency department for evaluation of right leg pain. He states that yesterday he just started feeling poorly. He did have some chills. He just felt achy all over. He has a history of COPD. He states he is not coughing more than his baseline. He was using his nebulizer at home. He states he took a few steps and had a sudden onset sharp and stabbing pain in his right lower leg. He states he is never had pain similar to that. It brought him to his knees. He states he has been taking his medications as prescribed. - Related Data Allergies/Adverse Reactions: No Known Allergies Allergy (Verified 07/12/18 17:27) Past Medical History - General Information source: Patient - Social History Smoking Status: Never Smoker Chew tobacco use (# tins/day): No Frequency of alcohol use: None Drug Abuse: Prescription drugs Family History: Reviewed & Not Pertinent Patient has suicidal ideation: No Patient has homicidal ideation: No - Past Medical History Cardiac Medical History: Reports: Hx Atrial Fibrillation, Hx Congestive Heart Failure, Hx Coronary Artery Disease, Hx Hypercholesterolemia, Hx Hypertension Denies: Hx Heart Attack Pulmonary Medical History: Reports: Hx Asthma, Hx Bronchitis, Hx COPD, Hx Pneumonia Denies: Hx Tuberculosis EENT Medical History: Reports: None Neurological Medical History: Reports: Hx Cerebrovascular Accident - RIGHT SIDED WEAKNESS. Denies: Hx Seizures Endocrine Medical History: Reports: Hx Diabetes Mellitus Type 2 Renal/ Medical History: Reports: None. Denies: Hx End Stage Renal Disease, Hx Kidney Stones, Hx Peritoneal Dialysis Malignancy Medical History: Reports None GI Medical History: Reports: Hx Gastroesophageal Reflux Disease. Denies: Hx Hiatal Hernia, Hx Ulcer Musculoskeletal Medical History: Denies Hx Arthritis, Reports Hx Musculoskeletal Deformity, Reports Hx Musculoskeletal Trauma Skin Medical History: Reports None Psychiatric Medical History: Reports: Hx Depression Denies: Hx Bipolar Disorder, Hx Schizophrenia Traumatic Medical History: Reports: None Infectious Medical History: Reports: None Past Surgical History: Reports: Hx Cardiac Catheterization - stent x1, Hx C ardiac Surgery - pacemaker x's2, Hx Cholecystectomy - 2000, Hx Orthopedic Surgery - jaw fx, Hx Pacemaker - x2. Denies: Hx Open Heart Surgery - Immunizations Hx Diphtheria, Pertussis, Tetanus Vaccination: Yes - < 5 years Hx Pneumococcal Vaccination: 12/24/11 Review of Systems - Review of Systems Constitutional: No symptoms reported EENT: No symptoms reported Cardiovascular: No symptoms reported Respiratory: See HPI Gastrointestinal: No symptoms reported Genitourinary: No symptoms reported Musculoskeletal: See HPI Skin: No symptoms reported Neurological/Psychological: No symptoms reported Physical Exam - Vital signs Vitals: Temp Pulse Resp BP Pulse Ox 98.4 F 90 16 163/93 H 90 L 07/12/18 17:33 07/12/18 17:33 07/12/18 17:33 07/12/18 17:33 07/12/18 17:33 - Notes Notes: 73-year-old male, moderate amount of distress secondary to pain. He is moaning, intermittently rolling around the bed. Head is normocephalic and a dramatic. P upils are equal, round, reactive to light. Oral mucosa is moist. Heart is regular, lungs show diminished breath sounds at the bases. Abdomen is soft, nontender, normal active bowel sounds. Examination of the right lower extremity yields pallor of the foot. It is cooler to touch throughout, but notably so below the knee. I am unable to palpate right femoral, popliteal, posterior tibial, or dorsalis pedis pulse. Lamination of the left lower extremity yields 1-2+ pulses throughout. He has diminished sensation to the right foot. Course - Re-evaluation Re-evalutation: 07/12/18 19:33 Patient presents to the emergency department for evaluation. Upon initial evaluation of the patient, I was acutely concerned that the patient did not have any arterial blood flow to the right lower extremity. I did attempt Doppler, this was unsuccessful at locating pulses. I then performed a bedside ultrasound. Color flow was not identified at the femoral artery, popliteal artery, or posterior tibial artery. Laboratory investigations were ordered, including coag panel. The patient is on Coumadin, states he has been taking his medications as prescribed. I did, without results of a formal Doppler, elected to start the patient on a heparin drip. Chest x-ray was ordered as a result of the patient's relative hypoxia. Left lower lobe pneumonia was identified as well. The patient was administered IV Levaquin. Multiple agents were employed to attempt to control the patient's pain. 07/12/18 19:59 Informal report given from the emerging technologies director, states there was trickle flow with her dorsalis pedis and anterior tibial arteries, but otherwise significant signs of occlusion. Spoke with Dr. Sahu, vascular surgeon, who accepted the patient is in ED to ED transfer. Helicopter will transport him to [facility]. 07/12/18 20:02 - Vital Signs Vital signs: Temp Pulse Resp BP Pulse Ox 98.4 F 90 16 163/93 H 90 L 07/12/18 17:33 07/12/18 17:33 07/12/18 17:33 07/12/18 17:33 07/12/18 17:33 - Laboratory Result Diagrams: 07/12/18 18:55 07/12/18 18:55 Laboratory results interpreted by me: 07/12/18 07/12/18 07/12/18 18:55 18:55 18:55 WBC 14.1 H RBC 4.04 L Hgb 12.2 L Hct 36.0 L RDW 14.7 H Plt Count 127 L Seg Neuts % (Manual) 91 H Lymphocytes % (Manual) 2 L Abs Neuts (Manual) 12.8 H Abs Lymphs (Manual) 0.3 L PT 21.7 H APTT 35.9 H BUN 45 H Creatinine 2.93 H Est GFR ( Amer) 26 L Est GFR (Non-Af Amer) 21 L Glucose 193 H Critical Care Note - Critical Care Note Total time excluding time spent on procedures (mins): 40 Discharge - Discharge Clinical Impression: acute femoral artery occlusion, Left lower lobe pneumonia Condition: Stable Disposition: [facility] Admitting Provider: - Dr. Sahu Referrals: KAYLA INGRAM MD [Primary Care Provider] - Follow up as needed
[2018-07-12] MEDS ORDERED: FENTANYL CITRATE INJ/PF 100 MCG/2 ML AMPUL IV ONE (19:52)
[2018-07-12 20:34] VITALS: BP 170/74
[2018-07-12] MEDS ORDERED: HEPARIN SOD (PORCINE) 1,000 UNIT/ML 10 ML VIAL IV PRN (21:49)
--- NOTE | 2018-07-13 08:10 | RADIOLOGY REPORT (SQ) ---
EXAM DESCRIPTION: ARTERIAL LOWER EXTREM UNILAT COMPLETED DATE/TIME: 07/12/2018 8:01 pm REASON FOR STUDY: right leg, pain, diminished pulse COMPARISON: None. TECHNIQUE: Dynamic and static torres scale and color images acquired of the lower extremity arteries. Additional selected spectral images recorded. LIMITATIONS: None. FINDINGS: RIGHT LEG: FEMORAL ARTERIES:No flow. POPLITEAL ARTERY:No flow. PATENT TIBIOPERONEAL TRUNK AND 3 VESSEL RUNOFF: Trickle flow in the anterior tibial artery and dorsal is pedis. OTHER: No other significant finding. LEFT LEG: FEMORAL ARTERIES:Biphasic flow. IMPRESSION: No inflow to the right femoral-popliteal system. Biphasic flow in the proximal left fem oral artery. TECHNICAL DOCUMENTATION: JOB ID: [id number] [email or web address]- All Rights Reserved Reading location - IP/workstation name: [email or web address]
== END 2018-07-12 20:45 | disposition short-term general hospital (02) ==
LOC: ER 17:25
DX: I70.201 Unspecified atherosclerosis of native arteries of extremities, right leg (principal); J18.9 Pneumonia, unspecified organism; J44.0 Chronic obstructive pulmonary disease with (acute) lower respiratory infection; R68.83 Chills (without fever); R05 Cough; R09.02 Hypoxemia; I25.10 Atherosclerotic heart disease of native coronary artery without angina pectoris; I10 Essential (primary) hypertension; E11.9 Type 2 diabetes mellitus without complications; I48.91 Unspecified atrial fibrillation; Z79.01 Long term (current) use of anticoagulants
CPT/HCPCS: 96376; 99285; 96375; 96365; 96368; 36415; 87040; 85025; 85610; 85730; 80053; 93926; 71045; J1644 ×2; J3010; J2270; J1170; J2405; J1956

== ENCOUNTER → 2018-11-05 | Outpatient (CLI) | payer MEDICARE, MEDICAID ==
[2018-11-05 14:16] LABS: HEMATOCRIT 27.9 % (37.9-51.0); MEAN CORPUSCULAR HEMOGLOBIN 25.4 pg (27.0-33.4); MEAN CORPUSCULAR HGB CONC 32.2 g/dL (32.0-36.0); MEAN CORPUSCULAR VOLUME 79 fl (80-97); PLATELET COUNT 206 10^3/uL (150-450); RED BLOOD COUNT 3.54 10^6/uL (4.35-5.55)
[2018-11-05 14:34] LABS: APPEARANCE,URINE CLEAR; BILIRUBIN,URINE NEGATIVE (NEGATIVE); COLOR,URINE STRAW; GLUCOSE, URINE 50 mg/dL (NEGATIVE); KETONES,URINE NEGATIVE (NEGATIVE); LEUKOCYTE ESTERASE,URINE NEGATIVE (NEGATIVE); NITRITE,URINE NEGATIVE (NEGATIVE); PROTEIN,URINE NEGATIVE (NEGATIVE); URINE SPECIFIC GRAVITY 1.008; UROBILINOGEN,URINE NEGATIVE mg/dL (<2.0)
[2018-11-05 14:44] LABS: ANION GAP 7 (5-19); BLOOD UREA NITROGEN 38 mg/dL (7-20); CALCIUM 9.2 mg/dL (8.4-10.2); CARBON DIOXIDE 30 mmol/L (22-30); CHLORIDE 102 mmol/L (98-107); GLUCOSE 132 mg/dL (75-110); PHOSPHORUS 4.1 mg/dL (2.5-4.5); POTASSIUM 3.8 mmol/L (3.6-5.0)
[2018-11-05 16:53] LABS: IRON(TIBC) 15.3 ug/dL (49-181)
== END ==
LOC: OD 13:44
PROVIDERS: ATTEND Physician Assistant Medical
DX: I12.9 Hypertensive chronic kidney disease with stage 1 through stage 4 chronic kidney disease, or unspecified chronic kidney disease (principal); N18.4 Chronic kidney disease, stage 4 (severe); E11.22 Type 2 diabetes mellitus with diabetic chronic kidney disease; D63.1 Anemia in chronic kidney disease; R60.9 Edema, unspecified; E87.5 Hyperkalemia
CPT/HCPCS: 36415; 80048; 81001; 82728; 83540; 83550; 83970; 84100; 84466; 85027

== ENCOUNTER 2018-11-12 10:56 | Outpatient (CLI) | payer MEDICARE, MEDICAID ==
[~2018-11-12 10:56] MED LIST changes: +FERRIC CARBOXYMALTOSE 750 MG in NORMAL SALINE 250 ML IV PRN; -KETOROLAC TROMETHAMINE 0.45% 4 DROP/0.4 ML DROPERETTE OS PRN
[2018-11-12 11:43] VITALS: BP 156/75
== END 2018-11-12 12:32 | disposition home or self-care (01) ==
LOC: II 10:56 → 5TH 10:58 → II 12:32
PROVIDERS: ATTEND Physician Assistant Medical
PROC: 3E033GC Introduction of Other Therapeutic Substance into Peripheral Vein, Percutaneous Approach (ICD-10-PCS; principal; 2018-11-12)
DX: D50.8 Other iron deficiency anemias (principal)
CPT/HCPCS: 96365; J7050; J1439

== ENCOUNTER 2018-11-26 13:24 | Outpatient (CLI) | payer MEDICARE, MEDICAID ==
[2018-11-26 13:38] VITALS: BP 180/67
== END 2018-11-26 14:49 | disposition home or self-care (01) ==
LOC: II 13:24 → 5TH 14:03 → II 14:49
PROVIDERS: ATTEND Physician Assistant Medical
PROC: 3E033GC Introduction of Other Therapeutic Substance into Peripheral Vein, Percutaneous Approach (ICD-10-PCS; principal; 2018-11-26)
DX: D50.8 Other iron deficiency anemias (principal)
CPT/HCPCS: 96365; J7050; J1439

== ENCOUNTER 2018-11-28 16:36 | Emergency (ER) | payer MEDICARE, MEDICAID ==
--- NOTE | 2018-11-28 18:03 | ER Document Report ---
ED Medical Screen (RME) - General Chief Complaint: Wound Infection Stated Complaint: POSSIBLE STAPH INFECTION Time Seen by Provider: 11/28/18 18:00 Primary Care Provider: SUSAN TILLMAN PA-C [Primary Care Provider] - Follow up as needed Mode of Arrival: Wheelchair Information source: Patient Notes: 73-year-old male presented to ED for possible cellulitis to the right leg. He had a blood clot in June of this year. He went to [place] for for 5 months according to the family that he went to the assisted is been home for about a month getting treatments to his right leg since June. He has a history of blood clot high blood pressure diabetes type 2 coronary artery disease end-stage renal failure and a stroke. He does have a pacemaker. He states he has both fragments in his goal. He is retired lives alone. He also has coronary stents. Patient is alert and oriented he does have 2+ pedal edema the right leg is swollen red and is been getting wet-to-dry dressings for several weeks. They are here for the cellulitis but it is concerning for the amount of pedal edema he has also I have greeted and performed a rapid initial assessment of this patient. A comprehensive ED assessment and evaluation of the patient, analysis of test results and completion of medical decision making process will be conducted by an additional ED providers. TRAVEL OUTSIDE OF THE [place] IN LAST 30 DAYS: No - Related Data Allergies/Adverse Reactions: No Known Allergies Allergy (Verified 11/28/18 16:54) Past Medical History - Social History Frequency of alcohol use: None Drug Abuse: None - Past Medical History Cardiac Medical History: Reports: Hx Atrial Fibrillation, Hx Congestive Heart Failure, Hx Coronary Artery Disease, Hx Hypercholesterolemia, Hx Hypertension Denies: Hx Heart Attack Pulmonary Medical History: Reports: Hx Asthma, Hx Bronchitis, Hx COPD, Hx Pneumonia Denies: Hx Tuberculosis Neurological Medical History: Reports: Hx Cerebrovascular Accident - RIGHT SIDED WEAKNESS. Denies: Hx Seizures Endocrine Medical History: Reports: Hx Diabetes Mellitus Type 2 Renal/ Medical History: Denies: Hx End Stage Renal Disease, Hx Kidney Stones, Hx Peritoneal Dialysis GI Medical History: Reports: Hx Gastroesophageal Reflux Disease. Denies: Hx Hiatal Hernia, Hx Ulcer Musculoskeltal Medical History: Denies Hx Arthritis, Reports Hx Musculoskeletal Deformity, Reports Hx Musculoskeletal Trauma Psychiatric Medical History: Reports: Hx Depression Denies: Hx Bipolar Disorder, Hx Schizophrenia Past Surgical History: Reports: Hx Cardiac Catheterization - stent x1, Hx Cardiac Surgery - pacemaker x's2, Hx Cholecystectomy - 2000, Hx Orthopedic Surgery - jaw fx, Hx Pacemaker - x2. Denies: Hx Open Heart Surgery - Immunizations Hx Diphtheria, Pertussis, Tetanus Vaccination: Yes - < 5 years Physical Exam - Vital signs Vitals: Temp Pulse Resp BP Pulse Ox 98.8 F 70 16 166/59 H 96 11/28/18 17:40 11/28/18 17:40 11/28/18 17:40 11/28/18 17:40 11/28/18 17:40 Course - Vital Signs Vital signs: Temp Pulse Resp BP Pulse Ox 98.8 F 70 16 166/59 H 96 11/28/18 17:40 11/28/18 17:40 11/28/18 17:40 11/28/18 17:40 11/28/18 17:40 Doctor's Discharge - Discharge Referrals: SUSAN TILLMAN PA-C [Primary Care Provider] - Follow up as needed
[2018-11-28 18:23] LABS: ABSOLUTE EOSINOPHILS # (AUTO) 0.2 10^3/uL (0.0-0.6); ABSOLUTE LYMPHOCYTES (AUTO) 1.2 10^3/uL (0.5-4.7); ABSOLUTE MONOCYTES (AUTO) 0.7 10^3/uL (0.1-1.4); ABSOLUTE NEUT (AUTO) 4.8 10^3/uL (1.7-8.2); BASOPHILS % (AUTO) 0.5 % (0-2); EOSINOPHILS % (AUTO) 3.5 % (0-6); HEMATOCRIT 30.2 % (37.9-51.0); HEMOGLOBIN 9.5 g/dL (13.5-17.0); LYMPHOCYTES % (AUTO) 17.1 % (13-45); MEAN CORPUSCULAR HEMOGLOBIN 26.2 pg (27.0-33.4); MEAN CORPUSCULAR HGB CONC 31.5 g/dL (32.0-36.0); MONOCYTES % (AUTO) 9.9 % (3-13); PLATELET COUNT 188 10^3/uL (150-450); RED BLOOD COUNT 3.62 10^6/uL (4.35-5.55); RED CELL DISTRIBUTION WIDTH 22.2 % (11.5-14.0); TOTAL CELLS COUNTED % (AUTO) 100 %; WHITE BLOOD COUNT 6.9 10^3/uL (4.0-10.5)
[2018-11-28 18:33] LABS: MEAN CORPUSCULAR VOLUME 83 fl (80-97)
[2018-11-28 18:36] LABS: ALBUMIN 3.6 g/dL (3.5-5.0); ALKALINE PHOSPHATASE 108 U/L (38-126); ANION GAP 6 (5-19); ASPARTATE AMINO TRANSFERASE 19 U/L (17-59); BILIRUBIN,DIRECT 0.3 mg/dL (0.0-0.4); BILIRUBIN,TOTAL 0.5 mg/dL (0.2-1.3); BLOOD UREA NITROGEN 28 mg/dL (7-20); CALCIUM 9.2 mg/dL (8.4-10.2); CARBON DIOXIDE 29 mmol/L (22-30); CHLORIDE 106 mmol/L (98-107); POTASSIUM 4.4 mmol/L (3.6-5.0); TOTAL PROTEIN 6.5 g/dL (6.3-8.2)
[2018-11-28 18:38] LABS: GLUCOSE 45 mg/dL (75-110)
--- NOTE | 2018-11-28 20:46 | RADIOLOGY REPORT (SQ) ---
EXAM DESCRIPTION: XR CHEST 2 VIEWS COMPLETED DATE/TME: 11/28/2018 18:01 CLINICAL HISTORY: 73 years Male pedal edema COMPARISON: 07/12/2018. FINDINGS: Cardiac size and mediastinal contour appear stable. Prominent costochondral cartilage opacification bilaterally. Stable pacemaker. Bilateral pleural effusions with atelectasis in the lung bases bilaterally. Flattening of the hemidiaphragms IMPRESSION: There are areas of atelectasis in the lung bases bilaterally with bilateral pleural effusions Pulmonary hyperinflation
[2018-11-28] MEDS ORDERED: FUROSEMIDE INJ/PF 40 MG/4 ML SDV IV ONE (21:19)
[2018-11-28] MEDS ORDERED: VANCOMYCIN HCL INJ 1000 MG VIAL IV ONE (21:19)
[2018-11-28] MEDS ORDERED: PIPERACILLIN/TAZOBACTAM 3.375 GM VIAL IV ONE (21:21)
[2018-11-28] MEDS ORDERED: VANCOMYCIN HCL INJ 1000 MG VIAL ONE (23:28)
--- NOTE | 2018-11-29 01:00 | ER Document Report ---
ED General - General Chief Complaint: Wound Infection Stated Complaint: POSSIBLE STAPH INFECTION Time Seen by Provider: 11/28/18 18:00 Primary Care Provider: SUSAN TILLMAN PA-C [Primary Care Provider] - Follow up as needed Mode of Arrival: Wheelchair Notes: Patient is a pleasant 73-year-old male presents with complaint of 2 separate complaints. First is difficulty breathing is worsened over the last 2 days. He says that recently his doctor cut his Lasix from 40 mg to 20 mg and if noticed increasing edema to his lower extremities as well as increasing worsening difficulty breathing. Says he cannot lay flat and breathe. No chest pain. Patient second complaint is of redness to his right lower extremity. Last 24 hours they have noticed increased drainage from wounds on his leg as well as now blistering and redness which is his family member says has rapidly progressed over the last 12 to 24 hours. He does have a history of recurrent infections of his right lower leg. He was followed by Dr. Sahu at [facility]. He had a thrombectomy due to large DVT in his right lower extremity. After this apparently got infections in his legs and required wound vacs. He is a usp for some time with wound vacs. Wound vacs prevention removed and now is at home with family and home health care. He is currently not on antibiotics. TRAVEL OUTSIDE OF THE [place] IN LAST 30 DAYS: No - Related Data Allergies/Adverse Reactions: No Known Allergies Allergy (Verified 11/28/18 16:54) Past Medical History - General Information source: Patient - Social History Smoking Status: Never Smoker Frequency of alcohol use: None Drug Abuse: None Family History: Reviewed & Not Pertinent Patient has suicidal ideation: No Patient has homicidal ideation: No - Past Medical History Cardiac Medical History: Reports: Hx Atrial Fibrillation, Hx Congestive Heart Failure, Hx Coronary Artery Disease, Hx Hypercholesterolemia, Hx Hypertension Denies: Hx Heart Attack Pulmonary Medical History: Reports: Hx Asthma, Hx Bronchitis, Hx COPD, Hx Pneumonia Denies: Hx Tuberculosis Neurological Medical History: Reports: Hx Cerebrovascular Accident - RIGHT SIDED WEAKNESS. Denies: Hx Seizures Endocrine Medical History: Reports: Hx Diabetes Mellitus Type 2 Renal/ Medical History: Denies: Hx End Stage Renal Disease, Hx Kidney Stones, Hx Peritoneal Dialysis GI Medical History: Reports: Hx Gastroesophageal Reflux Disease. Denies: Hx Hiatal Hernia, Hx Ulcer Musculoskeletal Medical History: Denies Hx Arthritis, Reports Hx Musculoskeletal Deformity, Reports Hx Musculoskeletal Trauma Psychiatric Medical History: Reports: Hx Depression Denies: Hx Bipolar Disorder, Hx Schizophrenia Past Surgical History: Reports: Hx Cardiac Catheterization - stent x1, Hx Cardiac Surgery - pacemaker x's2, Hx Cholecystectomy - 2000, Hx Orthopedic Surgery - jaw fx, Hx Pacemaker - x2. Denies: Hx Open Heart Surgery - Immunizations Hx Diphtheria, Pertussis, Tetanus Vaccination: Yes - < 5 years Hx Pneumococcal Vaccination: 12/24/11 Review of Systems - Review of Systems Notes: My Normal Review Basic REVIEW OF SYSTEMS: CONSTITUTIONAL : Denies fever, chills, or sweats. Denies recent illness. EENT: Denies eye, ear, throat, or mouth pain or symptoms. Denies nasal or sinus congestion. CARDIOVASCULAR: Denies chest pain. RESPIRATORY: Soreness of breath GASTROINTESTINAL: Denies abdominal pain. Denies nausea, vomiting, or diarrhea. MUSCULOSKELETAL: Redness and swelling from right leg with drainage from wounds. SKIN: Redness and swelling from right leg. HEMATOLOGIC : Denies easy bruising or bleeding. LYMPHATIC: Denies swollen, enlarged glands. NEUROLOGICAL: Denies altered mental status or loss of consciousness. Denies headache. Denies weakness or paralysis or loss of use of either side. Denies problems with gait or speech. Denies sensory or motor loss. ALL OTHER SYSTEMS REVIEWED AND NEGATIVE. Physical Exam - Vital signs Vitals: Temp Pulse Resp BP Pulse Ox 98.8 F 70 16 166/59 H 96 11/28/18 17:40 11/28/18 17:40 11/28/18 17:40 11/28/18 17:40 11/28/18 17:40 - Notes Notes: General Appearance: Well nourished, alert, cooperative, no acute distress, no ob vious discomfort. Vitals: reviewed, See vital signs table. Head: no swelling or tenderness to the head Eyes: PERRL, EOMI, Conjuctiva clear Mouth: No decreasd moisture Throat: No tonsillar inflammation, No airway obstruction, No lymphadenopathy Neck: Supple, no neck tenderness, No thyromegaly Lungs: No wheezing, bibasilar rales., No rhonci, No accessory muscle use, good air exchange bilaterally. Heart: Normal rate, Regular rythm, No murmur, no rub Abdomen: Normal BS, soft, No rigidity, No abdominal tenderness, No guarding, no rebound, no abdominal masses, no organomegaly Extremities: s patient has wounds on the medial lateral aspect of the right lower extremity. I did remove the dressings on the wounds. Dressings were soaked. The wound on the lateral aspect appears to have some purulent drainage based on discoloration of the dressing that was on this wound. The medial wound does not appear to have any purulent drainage. There is no fluctuance. He does have a significant amount of spreading erythema redness with blistering of the skin consistent with that of cellulitis. The leg is warm to touch. , good pulses in all extremities, Skin: warm, dry, Neuro: speech clear, oriented x 3, normal affect, responds appropriately to questions. Course - Re-evaluation Re-evalutation: 11/29/18 00:59 I did call speak with Dr. Sahu, patient's surgeon at [facility]. He has been following the patient in regards to his leg and infections. This is per the family's report. Dr. Kirkland agreed to accept patient for transfer for continued management of his leg infection. I did inform Dr. Sahu with patient's also acute pulmonary edema as well. Patient is currently stable. Dictation of this chart was performed using voice recognition software; therefore, there may be some unintended grammatical errors. - Vital Signs Vital signs: Temp Pulse Resp BP Pulse Ox 98.2 F 70 13 136/61 H 100 11/28/18 22:00 11/28/18 17:40 11/29/18 00:01 11/29/18 00:01 11/29/18 00:01 - Laboratory Result Diagrams: 11/28/18 18:03 11/28/18 18:03 Laboratory results interpreted by me: 11/28/18 11/28/18 11/28/18 18:03 18:03 18:03 RBC 3.62 L Hgb 9.5 L Hct 30.2 L MCH 26.2 L MCHC 31.5 L RDW 22.2 H BUN 28 H Creatinine 2.43 H Est GFR ( Amer) 32 L Est GFR (MDRD) Non-Af 26 L Glucose 45 L NT-Pro-B Natriuret Pep 8930 H Discharge - Discharge Clinical Impression: Wound infection Cellulitis Qualifiers: Site of cellulitis: extremity Site of cellulitis of extremity: lower extremity Laterality: right Qualified Code(s): L03.115 - Cellulitis of right lower limb Pulmonary edema Qualifiers: Chronicity: acute Qualified Code(s): J81.0 - Acute pulmonary edema Condition: Stable Disposition: [facility] Referrals: SUSAN TILLMAN PA-C [Primary Care Provider] - Follow up as needed
[2018-11-29 03:03] VITALS: BP 130/48
== END 2018-11-29 03:04 | disposition short-term general hospital (02) ==
LOC: ER 16:36
DX: L03.115 Cellulitis of right lower limb (principal); J81.0 Acute pulmonary edema; R06.00 Dyspnea, unspecified; I48.91 Unspecified atrial fibrillation; I50.9 Heart failure, unspecified; I25.10 Atherosclerotic heart disease of native coronary artery without angina pectoris; E78.00 Pure hypercholesterolemia, unspecified; I11.0 Hypertensive heart disease with heart failure; Z95.0 Presence of cardiac pacemaker
CPT/HCPCS: 99285; 96375; 96365; 96366; 96367; 36415; 87040; 82962; 85025; 80053; 83880; 71046; J1940; J3370; J2543

== ENCOUNTER 2019-04-28 21:32 | Emergency (ER) | payer MEDICARE, MEDICAID ==
[2019-04-28] MEDS ORDERED: METHYLPREDNISOLONE INJ 125 MG/2 ML SDV IV ONE (22:53)
[2019-04-28] MEDS ORDERED: IPRATROPIUM/ALBUTEROL 0.5-2.5 MG/3 ML AMPUL NEB ONE (22:53)
[2019-04-28] MEDS ORDERED: ALBUTEROL SULFATE 0.083% NEB 2.5 MG/3 ML AMPUL NEB ONE (22:56)
--- NOTE | 2019-04-28 22:56 | ER Document Report ---
ED Medical Screen (RME) - General Chief Complaint: Pain All Over Stated Complaint: BODY ACHES CONGESTION Time Seen by Provider: 04/28/19 22:50 Primary Care Provider: SUSAN TILLMAN PA-C [Primary Care Provider] - Follow up as needed Information source: Patient Notes: Patient presents complaining of cough for the past 3 weeks. Patient complains of shortness of breath and a tightness in his chest. Patient reports occasionally breaking out in a sweat although denies checking for any fever. Patient does have a history of asthma, hypertension, CVA and diabetes. Patient is currently on Eliquis. I have greeted and performed a rapid initial assessment of this patient. A comprehensive ED assessment and evaluation of the patient, analysis of test results and completion of the medical decision making process will be conducted by additional ED providers. TRAVEL OUTSIDE OF THE [place] IN LAST 30 DAYS: No - Related Data Allergies/Adverse Reactions: No Known Allergies Allergy (Verified 04/28/19 22:49) Past Medical History - Past Medical History Cardiac Medical History: Reports: Hx Atrial Fibrillation, Hx Congestive Heart Failure, Hx Coronary Artery Disease, Hx Hypercholesterolemia, Hx Hypertension Denies: Hx Heart Attack Pulmonary Medical History: Reports: Hx Asthma, Hx Bronchitis, Hx COPD, Hx Pneumonia Denies: Hx Tuberculosis Neurological Medical History: Reports: Hx Cerebrovascular Accident - RIGHT SIDED WEAKNESS. Denies: Hx Seizures, Hx Parkinson's Disease Endocrine Medical History: Reports: Hx Diabetes Mellitus Type 2 Renal/ Medical History: Denies: Hx End Stage Renal Disease, Hx Kidney Stones, Hx Peritoneal Dialysis GI Medical History: Reports: Hx Gastroesophageal Reflux Disease. Denies: Hx Hiatal Hernia, Hx Ulcer Musculoskeltal Medical History: Denies Hx Arthritis, Reports Hx Musculoskeletal Deformity, Reports Hx Musculoskeletal Trauma Psychiatric Medical History: Reports: Hx Depression Denies: Hx Bipolar Disorder, Hx Schizophrenia Past Surgical History: Reports: Hx Cardiac Catheterization - stent x1, Hx Cardiac Surgery - pacemaker x's2, Hx Cholecystectomy - 2000, Hx Orthopedic Surgery - jaw fx, Hx Pacemaker - x2. Denies: Hx Open Heart Surgery - Immunizations Hx Diphtheria, Pertussis, Tetanus Vaccination: Yes - < 5 years Physical Exam - Vital signs Vitals: Temp Pulse Resp BP Pulse Ox 98.6 F 94 20 149/59 H 94 04/28/19 22:08 04/28/19 22:08 04/28/19 22:08 04/28/19 22:08 04/28/19 22:08 - Respiratory Respiratory status: No respiratory distress Chest status: Pain with cough Breath sounds: Nonproductive cough, Wheezing Course - Vital Signs Vital signs: Temp Pulse Resp BP Pulse Ox 98.6 F 94 20 149/59 H 94 04/28/19 22:08 04/28/19 22:08 04/28/19 22:08 04/28/19 22:08 04/28/19 22:08 Doctor's Discharge - Discharge Referrals: SUSAN TILLMAN PA-C [Primary Care Provider] - Follow up as needed
--- NOTE | 2019-04-29 01:08 | RADIOLOGY REPORT (SQ) ---
PA and lateral chest radiograph: 04/29/2019 12:05 AM LABELING ASSOCIATE History: 73-year old patient with cough, dyspnea. Comparison: Chest radiograph performed 11/28/2018. Findings: The cardiomediastinal silhouette is enlarged. No pneumothorax is seen. There are airspace opacities at the lung bases, right greater than left. There is blunting of the right costophrenic angle, suggestive of a trace right effusion. A dual-lead left-sided pacemaker is seen. There is elevation of the right hemidiaphragm. Impression: There are airspace opacities at the lung bases, right and left associated with trace effusions.
--- NOTE | 2019-04-29 01:40 | ER Document Report ---
ED General - General Chief Complaint: Shortness Of Breath Stated Complaint: BODY ACHES CONGESTION Time Seen by Provider: 04/28/19 22:50 Primary Care Provider: SUSAN TILLMAN PA-C [ALLIED HEALTH PROFESSIONAL] - Follow up as needed TRAVEL OUTSIDE OF THE [place] IN LAST 30 DAYS: No - HPI Onset: Other - over the last 2 - 3weeks Onset/Duration: Gradual Severity: Moderate Pain Level: 1 Associated symptoms: Productive cough, Hoarseness, Shortness of breath Exacerbated by: Coughing, Other - exertion Similar symptoms previously: Yes - when his CHF has been bad and when he has had pneumonia Recently seen / treated by doctor: No Notes: 73 year old male with a history of CHF, AFib, CAD, HTN, HLD, Asthma, CVA, DM, GERD here for 2-3 weeks of shortness of breath and productive cough. The patient denies objective fevers but he has had some chills and sweats with his shortness of breath and cough. The patient denies chest pains, nausea, vomiting but he has felt tight in his chest with his breathing issues and coughing. - Related Data Allergies/Adverse Reactions: No Known Allergies Allergy (Verified 04/28/19 22:49) Past Medical History - General Information source: Patient - Social History Smoking Status: Never Smoker Chew tobacco use (# tins/day): No Frequency of alcohol use: None Drug Abuse: None Family History: Reviewed & Not Pertinent Patient has suicidal ideation: No Patient has homicidal ideation: No - Past Medical History Cardiac Medical History: Reports: Hx Atrial Fibrillation, Hx Congestive Heart Failure, Hx Coronary Artery Disease, Hx Hypercholesterolemia, Hx Hypertension Denies: Hx Heart Attack Pulmonary Medical History: Reports: Hx Asthma, Hx Bronchitis, Hx COPD, Hx Pneumonia Denies: Hx Tuberculosis Neurological Medical History: Reports: Hx Cerebrovascular Accident - RIGHT SIDED WEAKNESS. Denies: Hx Seizures, Hx Parkinson's Disease Endocrine Medical History: Reports: Hx Diabetes Mellitus Type 2 Renal/ Medical History: Denies: Hx End Stage Renal Disease, Hx Kidney Stones, Hx Peritoneal Dialysis GI Medical History: Reports: Hx Gastroesophageal Reflux Disease. Denies: Hx Hiatal Hernia, Hx Ulcer Musculoskeletal Medical History: Denies Hx Arthritis, Reports Hx Musculoskeletal Deformity, Reports Hx Musculoskeletal Trauma Psychiatric Medical History: Reports: Hx Depression Denies: Hx Bipolar Disorder, Hx Schizophrenia Past Surgical History: Reports: Hx Cardiac Catheterization - stent x1, Hx Cardiac Surgery - pacemaker x's2, Hx Cholecystectomy - 2000, Hx Orthopedic Surgery - jaw fx, Hx Pacemaker - x2. Denies: Hx Open Heart Surgery - Immunizations Hx Diphtheria, Pertussis, Tetanus Vaccination: Yes - < 5 years Hx Pneumococcal Vaccination: 12/24/11 Review of Systems - Review of Systems Constitutional: No symptoms reported EENT: No symptoms reported Cardiovascular: No symptoms reported Respiratory: Cough, Short of breath Gastrointestinal: No symptoms reported Genitourinary: No symptoms reported Male Genitourinary: No symptoms reported Musculoskeletal: No symptoms reported Skin: No symptoms reported Hematologic/Lymphatic: No symptoms reported Neurological/Psychological: No symptoms reported -: Yes All other systems reviewed and negative Physical Exam - Vital signs Vitals: Temp Pulse Resp BP Pulse Ox 98.6 F 94 20 149/59 H 94 04/28/19 22:08 04/28/19 22:08 04/28/19 22:08 04/28/19 22:08 04/28/19 22:08 - Notes Notes: GENERAL: Chronically ill appearing, well-nourished and in no acute distress. HEAD: Atraumatic, normocephalic. EYES: Pupils equal round and reactive to light, extraocular movements intact, sclera anicteric, conjunctiva are normal. Eye patch over right eye. ENT: Nares patent, oropharynx clear without exudates. Moist mucous membranes. NECK: Normal range of motion, supple without lymphadenopathy or JVD. LUNGS: Breath sounds clear to auscultation bilaterally and equal. No wheezes rales or rhonchi. HEART: Regular rate and rhythm without murmurs, rubs or gallops. ABDOMEN: Soft, nontender, normoactive bowel sounds. No guarding, no rebound. No masses appreciated. EXTREMITIES: Normal range of motion, no pitting or edema. No clubbing or cyanosis. NEUROLOGICAL: Cranial nerves II through XII grossly intact. Normal speech, normal gait. PSYCH: Normal mood, normal affect. SKIN: Edema of lower legs with chronic skin changes. Course - Re-evaluation Re-evalutation: 04/29/19 05:00 The patient is here for 2-3 weeks of cough, congestion, and tightness in his chest. He is not having an acute [place] based on his completely negative Troponin. Chest Xray read as possible bilateral lower infiltrates but pulmonary edema seems plausible as well given his very high BNP. Patient has been having a productive cough with rust colored sputum. Patient was given a neb in the ER as well as IV lasix 40mg. Patient is safe for outpatient follow up with his PCP and Senior Radiation Protection Technician. Patient told to double up on his Lasix for the next 4 days but will also prescribe a course of Levaquin. - Vital Signs Vital signs: Temp Pulse Resp BP Pulse Ox 98.6 F 94 16 161/65 H 93 04/28/19 22:08 04/28/19 22:08 04/29/19 03:01 04/29/19 03:01 04/29/19 03:01 - Laboratory Result Diagrams: 04/29/19 01:33 04/29/19 01:33 Laboratory results interpreted by me: 04/29/19 04/29/19 04/29/19 01:33 01:33 01:33 RBC 3.59 L Hgb 10.3 L Hct 31.1 L RDW 16.6 H Plt Count 128 L Lymph % (Auto) 8.0 L [place] % (Auto) 13.2 H BUN 42 H Creatinine 2.72 H Est GFR ( Amer) 28 L Est GFR (MDRD) Non-Af 23 L Alkaline Phosphatase 152 H NT-Pro-B Natriuret Pep 19122 H - Diagnostic Test Radiology reviewed: Image reviewed, Reports reviewed - EKG Interpretation by Me EKG shows normal: ST-T Waves Rate: Normal Rhythm: Other - Ventricular Paced [place]/QRS: Left axis deviation When compared to previous EKG there are: No significant change Additional EKG results interpreted by me: 04/29/19 05:00 LVH noted Discharge - Discharge Clinical Impression: Heart failure Qualifiers: Heart failure type: unspecified Heart failure chronicity: unspecified Qualified Code(s): I50.9 - Heart failure, unspecified Pneumonia Qualifiers: Pneumonia type: due to unspecified organism Laterality: bilateral Lung location: lower lobe of lung Qualified Code(s): J18.9 - Pneumonia, unspecified organism Condition: Stable Disposition: HOME, SELF-CARE Instructions: Congestive Heart Failure ([facility]), Pneumonia ([facility]) Additional Instructions: Double up on your daily lasix dose (take 80mg instead of your usual 40mg) for the next 4 days. Start taking Levaquin (antibiotic tomorrow - you received your first dose in the ER today). Follow up with your primary care doctor or Senior Radiation Protection Technician in the next several days to ensure symptoms are improving. Return to an ER for high fevers, chills, sweats, trouble breathing, chest pain or if worse. Prescriptions: Levofloxacin [Levaquin 750 mg Tablet] 750 mg PO DAILY #4 tablet Referrals: SUSAN TILLMAN PA-C [ALLIED HEALTH PROFESSIONAL] - Follow up as needed
[2019-04-29 01:42] LABS: ABSOLUTE BASOPHILS # (AUTO) 0.1 10^3/uL (0.0-0.2); ABSOLUTE EOSINOPHILS # (AUTO) 0.2 10^3/uL (0.0-0.6); ABSOLUTE LYMPHOCYTES (AUTO) 0.5 10^3/uL (0.5-4.7); ABSOLUTE MONOCYTES (AUTO) 0.9 10^3/uL (0.1-1.4); ABSOLUTE NEUT (AUTO) 4.9 10^3/uL (1.7-8.2); BASOPHILS % (AUTO) 0.9 % (0-2); EOSINOPHILS % (AUTO) 2.7 % (0-6); HEMATOCRIT 31.1 % (37.9-51.0); HEMOGLOBIN 10.3 g/dL (13.5-17.0); MEAN CORPUSCULAR HEMOGLOBIN 28.7 pg (27.0-33.4); MEAN CORPUSCULAR HGB CONC 33.1 g/dL (32.0-36.0); MEAN CORPUSCULAR VOLUME 87 fl (80-97); MONOCYTES % (AUTO) 13.2 % (3-13); PLATELET COUNT 128 10^3/uL (150-450); RED BLOOD COUNT 3.59 10^6/uL (4.35-5.55); RED CELL DISTRIBUTION WIDTH 16.6 % (11.5-14.0); SEGMENTED NEUTROPHILS % (AUTO) 75.2 % (42-78); TOTAL CELLS COUNTED % (AUTO) 100 %; WHITE BLOOD COUNT 6.5 10^3/uL (4.0-10.5)
[2019-04-29] MEDS ORDERED: IPRATROPIUM/ALBUTEROL 0.5-2.5 MG/3 ML AMPUL NEB ONE (01:45)
[2019-04-29 01:57] LABS: ALBUMIN 3.8 g/dL (3.5-5.0); ALKALINE PHOSPHATASE 152 U/L (38-126); ANION GAP 8 (5-19); ASPARTATE AMINO TRANSFERASE 28 U/L (17-59); BILIRUBIN,DIRECT 0.1 mg/dL (0.0-0.4); BILIRUBIN,TOTAL 0.6 mg/dL (0.2-1.3); BLOOD UREA NITROGEN 42 mg/dL (7-20); CALCIUM 9.3 mg/dL (8.4-10.2); CARBON DIOXIDE 26 mmol/L (22-30); CHLORIDE 107 mmol/L (98-107); GLUCOSE 83 mg/dL (75-110); POTASSIUM 4.5 mmol/L (3.6-5.0); TOTAL PROTEIN 6.7 g/dL (6.3-8.2)
[2019-04-29] MEDS ORDERED: FUROSEMIDE INJ/PF 20 MG/2 ML SDV IV ONE (02:37)
[2019-04-29 03:10] LABS: A TYPE INFLUENZA AG NEGATIVE (NEGATIVE); B INFLUENZA AG NEGATIVE (NEGATIVE)
[2019-04-29] MEDS ORDERED: LEVOFLOXACIN 750 MG TABLET PO ONE (05:07)
[2019-04-29 06:09] VITALS: BP 169/73
--- NOTE | 2019-04-29 07:59 | EKG REPORT ---
SEVERITY:- ABNORMAL ECG - VENTRICULAR-PACED COMPLEXES NONSPECIFIC IVCD WITH LAD LVH WITH SECONDARY REPOLARIZATION ABNORMALITY : Confirmed by: Unique Cortes MD 29-Apr-2019 07:59:29
== END 2019-04-29 06:40 | disposition home or self-care (01) ==
LOC: ER 21:32
DX: J18.9 Pneumonia, unspecified organism (principal); J44.0 Chronic obstructive pulmonary disease with (acute) lower respiratory infection; I11.0 Hypertensive heart disease with heart failure; I50.9 Heart failure, unspecified; R06.02 Shortness of breath; R05 Cough; R68.83 Chills (without fever); R61 Generalized hyperhidrosis; R49.0 Dysphonia; R07.89 Other chest pain; I25.10 Atherosclerotic heart disease of native coronary artery without angina pectoris; E11.9 Type 2 diabetes mellitus without complications
CPT/HCPCS: 93005; 94640; 99285; 96374; 36415; 82550; 85025; 80053; 84484; 87804; 83880; 71046; 93010; J1940; A9270 ×4; J7620